=== PATIENT | male | born 1950 | race Caucasian/White ===

== ENCOUNTER 2018-02-01 11:23 | Inpatient (IN) | payer OTHER, MEDICARE ==
[2018-02-01] MEDS ORDERED: NS 1,000 ML IV ONE (14:21)
[2018-02-01 14:37] LABS: PLATELET COUNT 172 10^3/uL (150-400)
--- NOTE | 2018-02-01 15:11 | EDPHY ---
H & P <Ross Riley - Last Filed: 02/01/18 17:13> Smoking Status: Never smoked <Barbie Hammond - Last Filed: 02/02/18 09:39> Time Seen by Provider: 02/01/18 11:47 HPI/ROS: 5:20 p.m. we discussed the MRI results. The patient tells me that the tingling in his right foot is baseline neuropathy. tells me that on Tuesday night he had slurred speech and trouble ambulating compared to baseline but that has improved over the last 2 days. I suspect that he had a CVA at that time. I discussed the case with Dr. Ashley who will admit to the medical service. ( Ross Riley) HPI Urinary incontinence. 67-year-old male by private vehicle with his . This patient reports that since yesterday he has had urinary incontinence. He describes this as dribbling urine uncontrollably. He reports having some burning when this happens. He has not had any back pain. His tells me that he has had difficulty getting off the toilet over the last couple of days because he complains that his feet go numb. There is no history of trauma. He denies history of malignancy. His tells me that on Tuesday night he had some slurred speech and difficulty walking compared to his baseline. This improved over the next 2 days. Currently he denies loss of sensation or weakness in his lower extremities. He has a history of type 2 diabetes. He reports that he has had a urinary tract infection in the past. He has not had a fever. He denies back pain. ROS: Constitutional: No fever, no chills. As above. Eyes: No discharge. No changes in vision. ENT: No sore throat. No nasal congestion or rhinorrhea. Respiratory: No cough. No shortness of breath. Cardiac: No chest pain, no palpitations. Gastrointestinal: No abdominal pain, no vomiting, no diarrhea. Genitourinary: No hematuria. As above. Musculoskeletal: No back pain. No neck pain. No myalgias or arthralgias. Skin: No rashes. Neurological: No headache. No focal weakness or altered sensation. Past medical history: Type 2 diabetes. Social history: Nonsmoker. Here with his . Denies alcohol. Physical Exam: General Appearance: Alert, no distress. This patient is responding to questions appropriately when focused, he seems a bit slow to respond to questioning at time. This patient appears well-hydrated and well-nourished. Eyes: Pupils equal and round no pallor or injection. No lid edema, erythema or injection. Back: No midline thoracic lumbar, sacral tenderness on palpation. No soft tissue edema, erythema or rash noted on gross inspection of his back. He is neurologically intact in all myotomes in dermatomes of the bilateral lower extremities. No saddle anesthesia. Respiratory: There are no retractions, lungs are clear to auscultation with good air movement bilaterally. Cardiovascular: Regular rate and rhythm. No murmur. Gastrointestinal: Abdomen is soft and nontender, he has an easily reducible umbilical hernia, bowel sounds normal. No focal tenderness at McBurney's point. No Krueger sign. : Normal circumcised penis. Intermittently dribbles clear urine. No purulence or other evidence of infection. Neurological: Motor sensory function is grossly intact. Cranial nerves are normal. Gait is normal. As above. Skin: Warm and dry, no rashes. Musculoskeletal: Neck is supple and nontender. Extremities are symmetrical. All joints range without pain or impingement. Psychiatric: No agitation. No depression. Database: EKG: Imaging: MRI of the brain without contrast: MRI of the LS spine without contrast: Procedures: Emergency department course: Triage vital signs reviewed. He is moderately hypertensive. Triage vital signs otherwise normal. Urinalysis obtained and is unremarkable. No evidence of infection. This was sent for culture. Of concern is a central nervous system dysfunction regarding his urinary incontinence and possible stroke considering his episode of slurred speech and difficulty walking on Tuesday night. I discussed the case with staff radiologist Dr. Luis Antonio Salmeron. He recommends a noncontrast MRI of the brain and noncontrast MRI of the LS spine. 3:00 p.m., care turned over to Dr. Ross Riley. MRI and EKG pending. Differential Diagnosis: The differential diagnosis on this patient includes but is not limited to peripheral neuropathy, urinary tract infection, epidural compression syndrome, CVA. This represents a partial list of diagnoses considered. These considerations are based on history, physical exam, past history, reassessment and diagnostic testing. (Barbie Hammond) Constitutional: Initial Vital Signs Temperature (C) 36.8 C 02/01/18 11:35 Heart Rate 84 02/01/18 11:35 Respiratory Rate 16 02/01/18 11:35 Blood Pressure 152/81 H 02/01/18 11:35 O2 Sat (%) 94 02/01/18 11:35 O2 Delivery Mode Room Air Allergies/Adverse Reactions: niacin [From Niaspan Extended-Release] Allergy (Mild, Unverified 02/01/18 18:24) [place] Home Medications: Medication Instructions Recorded Allopurinol [Allopurinol 300 MG 300 mg PO DAILY 10/16/14 (RX)] Aspirin [Aspirin 81mg (OTC)] 81 mg PO DAILY 10/16/14 Diltiazem Cd [Cardizem ER 180 MG 180 mg PO DAILY 10/16/14 (RX)] Diltiazem HCl [Diltiazem ER] 240 mg PO DAILY 10/16/14 Herbals/Supplements -Info Only 1 ea PO DAILY 10/16/14 Loratadine [Claritin] 10 mg PO DAILY 10/16/14 Losartan/Hydrochlorothiazide 1 each PO DAILY 10/16/14 [Losartan-Hctz 100-25 Mg Tab] Multivitamins [Tab-A-Walker] 1 each PO DAILY 10/16/14 metFORMIN HCL [Glucophage] 500 mg PO BIDMEAL 10/16/14 Medical Decision Making - Diagnostics Imaging: Discussed imaging studies w/ physically impaired teacher Radiologist <Ross Riley - Last Filed: 02/01/18 17:13> <Barbie Hammond - Last Filed: 02/02/18 09:39> - Diagnostics EKG Interpretation: An EKG obtained and was read and documented in trace view. Please see trace view for full reading and report. Sinus rhythm, PVC, unusual T-wave anteriorly , will repeat A repeat EKG obtained and was read and documented in trace view. Please see trace view for full reading and report. Sinus rhythm with bigeminy, T-waves appear more normal (Ross Riley) Imaging Results: Imaging Impressions Brain MRI 02/01/18 14:32 Impression: 1. Acute right low parietal-insular ischemic infarction. 2. Chronic left posterior parietal-occipital infarction. 3. Query embolic phenomenon or vasculitis? 2. MRI Lumbar Spine (Without Contrast) History: Urinary incontinence. Technique: Sagittal and axial T1 and T2 second echo imaging with fat suppression. Sagittal STIR images. Findings: Lumbar alignment is anatomic except for mild retrolisthesis at L5- S1.. The lumbar canal is congenitally normal in size and widely patent. There is neuro nerve root clustering or nodularity to suggest arachnoiditis. The conus medullaris occurs at T12-L1 and appears normal. Posterior disk margins are normal at all levels except for a mild disk bulge at L5-S1 associated with a small eccentric to the left of midline disk protrusion and a right-sided posterior cyst facet joint synovial cyst. A synovial cyst causes a moderate dorsal lateral extradural indentation on the thecal sac but is not associated with severe central canal stenosis. There is a far lateral foraminal, annular tear at L4-L5. Bar bone marrow signal intensity is normal without evidence of metastatic disease or compression fracture. There is no evidence for an epidural hematoma or abscess. Impression: No source for incontinence identified. There is degenerative lumbar disease between L4 and S1. Results called to Dr. Riley at 5:02 PM Lumbar Spine MRI 02/01/18 14:32 Impression: 1. Acute right low parietal-insular ischemic infarction. 2. Chronic left posterior parietal-occipital infarction. 3. Query embolic phenomenon or vasculitis? 2. MRI Lumbar Spine (Without Contrast) History: Urinary incontinence. Technique: Sagittal and axial T1 and T2 second echo imaging with fat suppression. Sagittal STIR images. Findings: Lumbar alignment is anatomic except for mild retrolisthesis at L5- S1.. The lumbar canal is congenitally normal in size and widely patent. There is neuro nerve root clustering or nodularity to suggest arachnoiditis. The conus medullaris occurs at T12-L1 and appears normal. Posterior disk margins are normal at all levels except for a mild disk bulge at L5-S1 associated with a small eccentric to the left of midline disk protrusion and a right-sided posterior cyst facet joint synovial cyst. A synovial cyst causes a moderate dorsal lateral extradural indentation on the thecal sac but is not associated with severe central canal stenosis. There is a far lateral foraminal, annular tear at L4-L5. Bar bone marrow signal intensity is normal without evidence of metastatic disease or compression fracture. There is no evidence for an epidural hematoma or abscess. Impression: No source for incontinence identified. There is degenerative lumbar disease between L4 and S1. Results called to Dr. Riley at 5:02 PM - Data Points Laboratory Results: Laboratory Results 02/01/18 14:28 02/01/18 14:28 02/01/18 14:28 Hemoglobin A1c 6.3 % H % (4.0-6.0) Estim Average Glucose 134 mg/dL H mg/dL (68-126) Medications Given: Allopurinol (Allopurinol) 300 mg PO DAILY [facility] Stop: 08/01/18 08:59 Last Admin: 02/02/18 08:17 Dose: 300 mg Aspirin (Aspirin) 81 mg PO DAILY [facility] Stop: 08/01/18 08:59 Last Admin: 02/02/18 08:17 Dose: 81 mg Cetirizine HCl (Zyrtec) 10 mg PO DAILY [facility] Stop: 08/01/18 08:59 Last Admin: 02/02/18 08:17 Dose: 10 mg Diltiazem HCl (Cardizem Er Q24hr) 180 mg PO DAILY [facility] Stop: 08/01/18 08:59 Last Admin: 02/02/18 08:15 Dose: 180 mg Diltiazem HCl (Dilacor Xr) 240 mg PO DAILY [facility] Stop: 08/01/18 08:59 Last Admin: 02/02/18 08:16 Dose: 240 mg Enoxaparin Sodium (Lovenox) 40 mg SC DAILY [facility] Stop: 08/01/18 08:59 Last Admin: 02/02/18 08:18 Dose: 40 mg HCTZ/Losartan Potassium (Hyzaar 50/12.5) 2 tab PO DAILY [facility] Stop: 08/01/18 08:59 Last Admin: 02/02/18 08:16 Dose: 2 tab Sodium Chloride (Ns) 1,000 mls @ 75 mls/hr IV CONT [facility] Stop: 07/31/18 20:59 Last Admin: 02/01/18 22:06 Dose: 1,000 mls Insulin Human Lispro (Humalog Lispro) 0 unit SC TIDMEAL [facility] PRN Reason: Protocol Stop: 08/01/18 07:59 Last Admin: 02/02/18 08:17 Dose: 2 units Multivitamins (Tab-A-Walker) 1 each PO DAILY [facility] Stop: 08/01/18 08:59 Last Admin: 02/02/18 08:19 Dose: 1 each Discontinued Medications Sodium Chloride (Ns) 1,000 mls @ 0 mls/hr IV ONCE ONE; Wide Open PRN Reason: Protocol Stop: 02/01/18 14:22 Last Admin: 02/01/18 14:39 Dose: 1,000 mls Departure <Ross Riley - Last Filed: 02/01/18 17:13> <Barbie Hammond - Last Filed: 02/02/18 09:39> - Departure Disposition: [facility] Inpatient Acute Clinical Impression: Urinary incontinence Condition: Fair
--- NOTE | 2018-02-01 16:09 | CPEKG ---
Test Reason : OPEN Blood Pressure : / mmHG Vent. Rate : 070 BPM Atrial Rate : 070 BPM P-R Int : 126 ms QRS Dur : 087 ms QT Int : 425 ms P-R-T Axes : 021 011 -74 degrees QTc Int : 459 ms Sinus rhythm Ventricular bigeminy Probable left atrial enlargement Confirmed by Ross Riley ([id number]) on 02/01/2018 4:09:16 PM Referred By: Confirmed By:Ross Riley
--- NOTE | 2018-02-01 18:08 | CPEKG ---
Test Reason : OPEN Blood Pressure : / mmHG Vent. Rate : 091 BPM Atrial Rate : 038 BPM P-R Int : 167 ms QRS Dur : 087 ms QT Int : 432 ms P-R-T Axes : 031 010 226 degrees QTc Int : 532 ms Sinus rhythm Ventricular bigeminy Left atrial enlargement Confirmed by Ross Riley ([id number]) on 02/01/2018 6:08:07 PM Referred By: Confirmed By:Ross Riley
[2018-02-01] MEDS ORDERED: ACETAMINOPHEN 325 MG TAB PO PRN (20:51)
[2018-02-01] MEDS ORDERED: HYDROmorphONE/DILAUDID 1 MG/ML INJ IVP PRN (20:51)
[2018-02-01] MEDS ORDERED: ONDANSETRON DISINTEGRATING 4 MG TAB PO PRN (20:51)
[2018-02-01] MEDS ORDERED: PROMETHAZINE HCL 25 MG/ML INJ IVP PRN (20:51)
[2018-02-01] MEDS ORDERED: ONDANSETRON 4 MG/2 ML VIAL IVP PRN (20:51)
[2018-02-01] MEDS ORDERED: NS 1,000 ML IV SCH (21:00)
[2018-02-01] MEDS ORDERED: D50W 25 GM/50 ML VIAL IVP PRN (22:20)
--- NOTE | 2018-02-01 22:49 | GHP ---
[f rep st] HISTORY AND PHYSICAL DATE OF ADMISSION: 02/01/2018 CHIEF COMPLAINT: Urinary incontinence. HISTORY: This is a 67-year-old man with a history of type 2 diabetes, hypertension, hyperparathyroid ism who presents initially with his with complaints of urinary incontinence that began yesterday . Apparently, he described this as dribbling urine uncontrollably. Apparently also his noted t hat he was having some difficulty walking with perhaps numbness in his feet. He notes to me that he also is having some difficulty with slurred speech since yesterday. This history is significantly li mited by patient's difficulty with providing a history. His family is not present at the time of my evaluation, and he is quite distracted by his cellphone and having a hard time answering questions wi th anything more than a yes or no answer. Therefore, a lot of this history is obtained per chart rev iew. He does to me deny any chest pain, weakness or numbness, fevers or chills, and shortness of christine ath. PAST MEDICAL HISTORY: Includes: 1. Type 2 diabetes. 2. Hypertension. 3. Hypothyroid. 4. GERD. 5. Low vitamin D. 6. Hyperparathyroidism. PAST SURGICAL HISTORY: Notable for parathyroidectomy. FAMILY HISTORY: Father with multiple CVAs according to the patient. He states he also had a blood c lotting disorder. SOCIAL HISTORY: Patient denies tobacco or alcohol or drug use. 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 REVIEW OF SYSTEMS: 10-point review of systems obtained, negative except as per HPI. HOME MEDICATIONS: 1. Metformin. 2. Multivitamin. 3. Losartan hydrochlorothiazide. 4. Loratadine. 5. Diltiazem. 6. Aspirin. 7. Allopurinol. ALLERGIES: Include niacin. PHYSICAL EXAMINATION: VITAL SIGNS: BP 148/63, heart rate 73, respiratory rate 18, O2 sats 93% on ro om air, temperature is 36.7. GENERAL APPEARANCE: This is a slightly disheveled man. He is awake an d alert. He is in no acute distress. EYES: Anicteric. Pupils equal, round, and reactive. HENT: Oropharynx is clear, moist mucous membranes. CARDIOVASCULAR: Regular, slightly bradycardic. No MRG . PULMONARY: CTA bilaterally. Normal work of breathing. ABDOMEN: Soft, nontender, nondistended. EXTREMITIES: No clubbing, cyanosis, or edema. SKIN: Warm, dry, well perfused. NEURO/PSYCH: Patient does seem to have a bit of dysarthria and difficulty following the conversation , which seems to be unlikely to be his baseline. His gait was appreciated to be normal. Strength an d sensation appear to be normal, though he is having difficulty following commands. CLINICAL DATA: Labs reviewed and notable for white blood cell count of 9.9, hematocrit of 51.6, plat elets of 172. Chemistry unremarkable. Urinalysis is normal. Head CT is limited study but unremarka ble. EKG personally reviewed and interpreted shows sinus rhythm with ventricular bigeminy, otherwise unrem arkable. Brain MRI: This was personally reviewed. There is no radiology read currently. However, there does appear to be a large right parietal infarct. ASSESSMENT AND PLAN: This is a 67-year-old man presenting with some subacute neurologic complaints i ncluding urinary incontinence, found to have likely subacute cerebrovascular accident. 1. Subacute cerebrovascular accident. It seems that this likely happened in the last several days b ut somewhat unclear given the history. Radiology read on MRI is still pending. Neurology has been c onsulted. We will monitor on telemetry, obtain an echocardiogram. Head and neck CTA likely will be required in the morning, but we will defer this to Neurology at this point given that imaging read is still pending. Patient does note that he has a family history of recurrent strokes in his father wi th some sort of blood clotting disorder, so this too may need to be further evaluated, and again, we will defer to Neurology. 2. Hypertension. We will continue patient's outpatient medications. His blood pressure is currentl y reasonably well controlled. 3. Type 2 diabetes. We will hold metformin as patient likely will require further imaging. We will monitor with sliding scale and check a hemoglobin A1c. 4. Hyperlipidemia. We will obtain lipid panel for further risk stratification. Patient is not curr ently on a statin at home. 5. Acute encephalopathy. This is likely related to patient's subacute cerebrovascular accident, tho ugh his baseline is unclear. We will need to obtain further information from family when they are av ailable. Uncertain if he has some level of baseline dementia, but when he speaks about his business, it sounds as if he is quite clear about that, but with other matters he does have significant diffic ulty with memory and with answering questions appropriately. We will further evaluate again as famil y is available. 6. Inpatient status: Suspect patient will need greater than 48-hour stay for evaluation and managem ent of above. 7. Patient is new to my care. Old records reviewed and summarized as per history of present illness and past medical history. Care plan reviewed with emergency room physician including plans for admi ssion. /[id number]/MODL
[2018-02-02] MEDS: DILTIAZEM CD 180 MG CAP PO SCH (08:15)
[2018-02-02] MEDS: DILTIAZEM XR 240 MG CAP PO SCH (08:16)
[2018-02-02] MEDS: LOSARTAN/HCTZ 50/12.5 1 TAB PO SCH (08:16)
[2018-02-02] MEDS: CETIRIZINE 10 MG TAB PO SCH (08:17)
[2018-02-02] MEDS: ALLOPURINOL 300 MG TAB PO SCH (08:17)
[2018-02-02] MEDS: INSULIN LISPRO 100 UNIT/ML SC SCH ×3 (08:17→18:52)
[2018-02-02] MEDS: ASPIRIN 81 MG CHEWABLE TAB PO SCH (08:17)
[2018-02-02] MEDS: ENOXAPARIN 40 MG/0.4 ML SYR SC SCH (08:18)
[2018-02-02] MEDS: MULTIVITAMINS 1 EACH TAB PO SCH (08:19)
[2018-02-02] MEDS ORDERED: ASPIRIN 81 MG CHEWABLE TAB PO SCH (09:00)
--- NOTE | 2018-02-02 09:24 | GCON ---
[f rep st] CONSULTATION NEUROLOGY CONSULTATION REFERRING PHYSICIAN: Elsa Hill MD HISTORY: The patient is a 67-year-old gentleman who I am asked to see in neurologic consultation reg arding stroke. The patient presented to the hospital to the recommendation of his since he was really not aware of anything specific. Apparently, grandkids noticed that he was not quite himself a nd he normally takes them to school and there was some report of some slurring of speech. He was hav ing some incontinence 2 days ago and just some dribbling is what he described. He was complaining of some numbness in his feet when he was sitting on the toilet. He was not noticing any specific weakn ess. During his evaluation, he had MRI of the brain and lumbar spine, and evidence of an acute strok e was identified in the right posterior frontal region with cortical base in the distribution of the middle cerebral artery, and also old stroke in the left parieto-occipital region, for which the patie nt says he had no idea. In fact, he really does not have complaints of any focal numbness or weaknes s. He can tell his speech might be slightly off, but that is really only because his mentioned it to him. He has subsequently been admitted for evaluation and has been stable overnight. Dr. Hill's hist ory and physical was reviewed. He has been started on aspirin therapy. PAST MEDICAL HISTORY: He has a history of type 2 diabetes, hypertension, hypothyroidism, reflux, low vitamin D, and hyperparathyroidism. FAMILY HISTORY: There is a family history of multiple strokes in his father and might have had some type of clotting disorder. SOCIAL HISTORY: No smoking or alcohol. 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 MEDICATIONS: Metformin, losartan, loratadine, diltiazem, aspirin, allopurinol. ALLERGIES: He has allergy to niacin. REVIEW OF SYSTEMS: Unremarkable, except for that noted above. PHYSICAL EXAM: VITAL SIGNS: Blood pressure is 124/74, pulse of 76, respirations 23, temperature 36. 5. GENERAL: He is mildly overweight, in no acute distress. EYES: Clear. NECK: Supple with no br uits or masses. CARDIAC: Regular rate and rhythm. No murmur. NEURO: He is awake and alert, but h as unsustained attention and rather prolonged latency to answer questions. I do not know his true ba seline of communication skills, but it seems impaired. He even lacks some awareness of the problems he is having, suggesting a little bit of neglect on the left side as well. This was variable. I cou ld not detect any visual field loss. Pupils 3 mm and reactive. Extraocular movements intact. At re st, there looks to be a mild left lower facial droop and I think his speech is a little bit dysarthri c. Palate elevates symmetrically. Tongue protrudes midline. Hearing is preserved. Motor exam: Ve ry mild drift in the left upper extremity with a little bit of weakness relative to the right. Lower extremity strength seems symmetric. Sensation is preserved. There was not definite neglect to simu ltaneous stimulation after initially I detected that it was not reproducible. Reflexes 1+. DIAGNOSTIC STUDIES: As outlined above. The patient has an NIH stroke scale of 4. IMPRESSION: Total unit time of 70 minutes. The patient has evidence of an acute ischemic infarction in the right middle cerebral artery territory with a significant infarct at about 4 x 4 cm, producin g minimal clinical deficits other than the dysarthria, subtle facial droop and mild left hemiparesis and neglect. The patient has also had a stroke in the left posterior parietooccipital region in the past, which would suggest potential embolic source. We need to obtain CT angiogram of the head and n mariann, and cardiac study with bubble study on echocardiogram, and continue monitoring. If all the work up is negative, then he should have at least a 30-day Holter monitor and consider prolonged monitorin g to look for occult atrial fibrillation. He should be started on statin therapy and continue the as pirin for now. With the father having history of stroke and reportedly possible clotting disorder, kaden jackson consideration will also be given to a hypercoagulable workup. He will need physical, occupationa l, and speech therapy consultations today, and depending on the results of our initial workup, fareed ram discharge at the end of the day today or perhaps tomorrow. This was discussed with the patient, but how much detail he is going to retain is to be determined. /[id number]/MODL
--- NOTE | 2018-02-02 10:42 | HOSPPROG ---
Hospitalist Progress Note Assessment/Plan: #Acute right parietal infarct: Also with chronic L parietal infarct on MRI concerning for thromboembolic source. Has some mild dysarthria, L facial droop, LUE weakness and inattention on exam. Did not get tPA. - Neuro following - ASA, start atorvastatin - TTE w/bubble - CTA head/neck - PT/OT/AERONAUTICAL TEST ENGINEER - Hypercoagulable work up pending - Telemetry - May need 30 day cardiac event monitor on dc if above work up unrevealing for source - Risk factor modification per below #Diabetes: A1c 6.3% - Hold metformin with contrast, on SSI #HTN: BP controlled - Continue home losartan/hctz and dilt #Ventricular bigeminy: Noted on admit ECG and tele - On CCB and also getting TTE - 30 day event monitor will be helpful in quantifying burden to determine need for additional therapy #Systolic murmur: Harsh, patient reports being told he's had this before but never been evaluated. Euvolemic - TTE #Hyperparathyroidism: s/p parathyroidectomy. Ca++ wnl. VTE ppx: LMWH Diet: passed AERONAUTICAL TEST ENGINEER miguelina ok for regular Code: full Dispo: Remain inpatient for evaluation as noted above. AERONAUTICAL TEST ENGINEER currently recommending inpatient rehab however will await additional therapy service recommendations and discuss with family. Subjective: Denies pain, nausea, shortness of breath. Perseverating on paper that AERONAUTICAL TEST ENGINEER had given him. Objective: Vital Signs Temp Pulse Resp BP Pulse Ox 36.5 C 76 23 H 124/74 H 94 02/02/18 07:36 02/02/18 08:16 02/02/18 07:36 02/02/18 08:16 02/02/18 07:36 02/01/18 02/02/18 02/03/18 05:59 05:59 05:59 Intake Total 2000 Output Total 500 Balance 1500 - Physical Exam Constitutional: no apparent distress, appears nourished, not in pain Eyes: PERRL, anicteric sclera, EOMI Cardiovascular: regular rate and rhythym, systolic murmur (harsh 3/6 systolic murmur heard across precordium without radiation, discernible S2), other ( frequent ectopy), No JVD, No edema Respiratory: no respiratory distress, no rales or rhonchi, clear to auscultation Gastrointestinal: normoactive bowel sounds, soft, non-tender abdomen, no palpable masses Skin: no rashes or abrasions, no fluctuance, no induration Musculoskeletal: full muscle strength, no muscle tenderness, normal joint ROM Neurologic: other (mild dysarthria, subtle left facial droop, subtle LUE weakness, limited attention) Psychiatric: not encephalopathic ICD10 Worksheet Patient Problems: Problems Problem Status Onset Stroke Acute Urinary incontinence Acute
[2018-02-02] MEDS ORDERED: IOPAMIDOL (ISOVUE 370) 100 ML BTL IV ONE (11:03)
--- NOTE | 2018-02-02 12:14 | ECHO ---
[email or web address] [address] Main: [phone] Fax: Transthoracic Echocardiogram Name: STORMY SHEPHERD MR#: [id number] Study Date: 02/02/2018 Study Time: 10:51 AM Date of : 1950 Age: 67 year(s) Height: 182.9 cm (72 in.) Weight: 88.45 kg (195 lb.) BSA: 2.11 m2 Gender: Male Examination: Echo with Agitated Saline Indication: ischemic stoke Image Quality: Technically Difficult Contrast: I.V. dose of agitated saline Requested by: Elsa Hill BP: 124 mmHg/77 mmHg Heart Rate: Rhythm: Indication: ischemic stoke Procedure Staff Mechanical Integrity Specialist: Shey Stark [facility] Reading Physician: Teofilo Angel MD Requesting Provider: Conclusions: Normal size left ventricle. Moderate concentric LV hypertrophy. EF is 71 %. No regional wall motion abnormality. An agitated saline study was performed and was negative for intracardiac shunting. Trivial mitral valve regurgitation. Aortic valve is not well visualized. Cannot rule out bicuspid aortic valve. Severe aortic valve calcification is present. Severe calcific aortic valve stenosis. Mean aortic valve gradient 75. No pericardial effusion. No prior study for comparison. Measurements: Chambers Valvular Assessment AV/MV Valvular Assessment TV/PV Normal Normal Normal Name Value Range Name Value Range Name Value Range Ao Dahiana (MM): 3.5 cm (2.2 cm-3.7 AV meanP mmHg ( - ) PV Vmax: 1.26 m/s (0.6 m/s-0.9 cm) ANGÉLICA (VTI): 0.7 cm ( - ) m/s) IVSd (2D): 1.4 cm (0.6 cm-1.1 AR (PHT): 565 ms ( - ) PV PGmax: 6 mmHg ( - ) cm) MV E Vmax: 0.71 m/s ( - ) LVDd (2D): 4.6 cm (4.2 cm-5.9 MV A Vmax: 1.09 m/s ( - ) cm) MV E/A: 0.65 ( - ) LVDs (2D): 3.1 cm (2.1 cm-4 cm) LVPWd (2D): 1.2 cm (0.6 cm-1 cm) LVOTd 2.1 cm 2.1 cm mm LVEF (BP): 71 % (>=55 %) Patient: STORMY SHEPHERD Study Date: 02/02/2018 Page 1 of 2 10:51 AM RVDd(2D): 3.7 cm (1.9 cm-3.8 cmmm) Continued Measurements: Chambers Valvular Assessment AV/MV Valvular Assessment TV/PV Name Value Name Value Name Value LADs: 3.7 cm MV DecTime: 222 m/s CVP (est.): 5 mmHg LADs Lon.8 cm MV E' Septal: 0.04 m/s LA Area: 22.8 cm2 MV E/E' Septal: 16.80 LA Volume: 60 ml MV E/E' Lateral: 16.80 LA Volume Index: 28.4 ml/m2 RA Area: 19.3 cm2 Additional Vessels Name Value Ao Ascendin.2 cm Findings: Left Ventricle: Normal size left ventricle. Moderate concentric LV hypertrophy. Normal global systolic LV function. EF is 71 %. No regional wall motion abnormality. Right Ventricle: Normal size right ventricle. Normal RV function. Left Atrium: The left atrium is normal in size. An agitated saline study was performed and was negative for intracardiac shunting. Right Atrium: The right atrium is normal in size. Mitral Valve: The mitral valve is normal in appearance. Trivial mitral valve regurgitation. No mitral stenosis is present. Aortic Valve: Aortic valve is not well visualized. Cannot rule out bicuspid aortic valve. Severe aortic valve calcification is present. Severe calcific aortic valve stenosis. Mean aortic valve gradient 75. NDSI =.21. Tricuspid Valve: The tricuspid valve appears normal. There is no tricuspid valve regurgitation. Pulmonic Valve: Pulmonary valve not well visualized. Aorta: Normal size aortic root measuring 3.5 cm. Normal size ascending aorta measuring 3.2 cm. IVC: The IVC is normal sized. Pericardium: No pericardial effusion. (No Signature Object) Patient: STORMY SHEPHERD Study Date: 02/02/2018 Page 2 of 2 10:51 AM [id number]
--- NOTE | 2018-02-02 13:51 | PDMN ---
Medical Necessity Medical necessity: Pt meets IP criteria per & TAVARES M-83; est los >2 mn for eval/tx of acute ischemic infarction w/acute encephalopathy; requiring further workup/monitoring, Neuro consult, IVFs, med management & therapies; hx diabetes , HTN & hyperthyroidism; per H&P & order 02/01/18
[2018-02-02] MEDS: ATORVASTATIN CALCIUM 40 MG TAB PO SCH (15:00)
--- NOTE | 2018-02-02 15:54 | PDCARCONS ---
Cardiology Consult Reason for Consult: CVA and notable murmur Chief Complaint: Urinary incontinence with slurred speech Requesting Physician: Hospitalist Team History of Present Illness: Patient is a 67 y/o male with history of DM, HTN, hypothyroidism, GERD, and hyperparathyroidism, with long standing history of "murmur" per both patient and , who presented to [facility] ER with complaints of urinary incontinence as well as ambulation difficulty and slurring of speech. Symptoms were initially noted two days ago, and admission was yesterday. No cardiovascular complaints of chest pains or pressure. No PND or orthopnea. No dizziness or lightheadedness. No symptoms similar to that which led to the admission to the ER in the past. Compliance with medical therapy has been good, but follow up with PCP for annual visit has been uneventful (per patient and ). No regular or routine exercise. No abnormal weight gain or loss has been noted. Admission note from 02-01-18 was reviewed today. In the ER, an MRI was performed which led to diagnosis of right CVA and consultation with neurology. Patient states that he has "...known about the murmur for some time..." but has not had a work up on this sign. Family history of father "...with hundreds of strokes..." in the past, and work up led to finding of a "blood problem". Remainder of the 12 point review of systems was unremarkable History Information - Allergies/Home Medication List Allergies/Adverse Reactions: niacin [From Niaspan Extended-Release] Allergy (Mild, Unverified 02/01/18 18:24) Flushing Home Medications: Allopurinol [Allopurinol 300 MG (RX)] 300 mg PO DAILY 10/16/14 [Last Taken 02/01] Aspirin [Aspirin 81mg (OTC)] 81 mg PO DAILY 10/16/14 [Last Taken 02/01/18 09:30] Diltiazem Cd [Cardizem ER 180 MG (RX)] 180 mg PO DAILY 10/16/14 [Last Taken ] Diltiazem HCl [Diltiazem ER] 240 mg PO DAILY 10/16/14 [Last Taken 02/01/18] Herbals/Supplements -Info Only 1 ea PO DAILY 10/16/14 [Last Taken 02/01/18] Loratadine [Claritin] 10 mg PO DAILY 10/16/14 [Last Taken 01/31/18] Losartan/Hydrochlorothiazide [Losartan-Hctz 100-25 Mg Tab] 1 each PO DAILY 10/16 [Last Taken 02/01/18] Multivitamins [Tab-A-Walker] 1 each PO DAILY 10/16/14 [Last Taken 02/01/18] metFORMIN HCL [Glucophage] 500 mg PO BIDMEAL 10/16/14 [Last Taken 02/01/18 09:00 ] I have personally reviewed and updated: family history, medical history, social history, surgical history Past Medical History: - Past Medical History CVA (new diagnosis), diabetes type 2, hypertension, hyperlipidemia - Surgical History Additional surgical history: parathyroidectomy - Family History Positive for: stroke - Social History Smoking Status: Never smoked Alcohol Use: None Drug Use: None Cardiac History - Cardiac History Cardiac Risk Factors: hypertension (>140/90), diabetes mellitus, age > 65, male Timing/Duration: Hours Severity: severe Severity Scale: 8 Activities at Onset: activity Associated Symptoms: weakness, other (aphasia) MARYANN Risk Evaluation age greater or equal to 65: yes greater or equal to 3 CAD risk factors: yes known CAD(stenosis greater or eqaul to 50%): no ASA use in past 7 days: no severe angina(greater or equal to 2 episodes in 24hrs): no EKG ST changes greater or equal to 0.5mm: no positive cardiac marker: no Total Score: 2 MARYANN Score: 8.3% risk Physical Exam Physical Exam: Temp Pulse Resp BP Pulse Ox 36.3 C 75 23 H 119/53 L 91 L 02/02/18 12:00 02/02/18 12:00 02/02/18 12:00 02/02/18 12:00 02/02/18 12:00 O2 (L/minute) 2 Constitutional: no apparent distress, appears nourished, not in pain, obese Eyes: PERRL, EOMI Ears, Nose, Mouth, Throat: moist mucous membranes, hearing normal Cardiovascular: regular rate and rhythym, systolic murmur (IV/ FRANCINE with radiation into the carotids), pulses symmetric bilaterally (some delay in auscultation to radial impulse), No JVD, No edema Peripheral Pulses: 2+: dorsalis-pedis (R), dorsalis-pedis (L) Respiratory: no respiratory distress, no rales or rhonchi, clear to auscultation Gastrointestinal: normoactive bowel sounds Skin: warm, normal color, No rash Musculoskeletal: full muscle strength, no muscle tenderness, normal joint ROM Neurologic: AAOx3, sensation intact bilaterally, CN II-XII Intact Psychiatric: interacting appropriately, not anxious, not encephalopathic Lab and Imaging 02/01/18 14:28 02/01/18 14:28 WBC 9.95 10^3/uL (3.80-9.50) H 02/01/18 14:28 RBC 6.14 10^6/uL (4.40-6.38) 02/01/18 14:28 Hgb 17.8 g/dL (13.7-17.5) H 02/01/18 14:28 Hct 51.6 % (40.0-51.0) H 02/01/18 14:28 MCV 84.0 fL (81.5-99.8) 02/01/18 14: MCH 29.0 pg (27.9-34.1) 02/01/18 14:28 MCHC 34.5 g/dL (32.4-36.7) 02/01/18 14:28 RDW 13.6 % (11.5-15.2) 02/01/18 14:28 Plt Count 172 10^3/uL (150-400) 02/01/18 14:28 MPV 10.8 fL (8.7-11.7) 02/01/18 14:28 Neut % (Auto) 70.5 % (39.3-74.2) 02/01/18 14:28 Lymph % (Auto) 17.8 % (15.0-45.0) 02/01/18 14:28 [place] % (Auto) 9.5 % (4.5-13.0) 02/01/18 14:28 Eos % (Auto) 1.2 % (0.6-7.6) 02/01/18 14:28 Baso % (Auto) 0.6 % (0.3-1.7) 02/01/18 14:28 Nucleat RBC Rel Count 0.0 % (0.0-0.2) 02/01/18 14:28 Absolute Neuts (auto) 7.01 10^3/uL (1.70-6.50) H 02/01/18 14:28 Absolute Lymphs (auto) 1.77 10^3/uL (1.00-3.00) 02/01/18 14:28 Absolute Monos (auto) 0.95 10^3/uL (0.30-0.80) H 02/01/18 14:28 Absolute Eos (auto) 0.12 10^3/uL (0.03-0.40) 02/01/18 14:28 Absolute Basos (auto) 0.06 10^3/uL (0.02-0.10) 02/01/18 14:28 Absolute Nucleated RBC 0.00 10^3/uL (0-0.01) 02/01/18 14:28 Immature Gran % 0.4 % (0.0-1.1) 02/01/18 14:28 Immature Gran # 0.04 10^3/uL (0.00-0.10) 02/01/18 14:28 Sodium 139 mEq/L (135-145) 02/01/18 14:28 Potassium 3.8 mEq/L (3.3-5.0) 02/01/18 14:28 Chloride 104 mEq/L (97-110) 02/01/18 14:28 Carbon Dioxide 23 mEq/l (22-31) 02/01/18 14:28 Anion Gap 12 mEq/L (8-16) 02/01/18 14:28 BUN 19 mg/dL (7-23) 02/01/18 14:28 Creatinine 1.1 mg/dL (0.7-1.3) 02/01/18 14:28 Estimated GFR > 60 02/01/18 14:28 Glucose 104 mg/dL (70-100) H 02/01/18 14:28 POC Glucose 171 mg/dL (70-100) H 02/02/18 13:37 Hemoglobin A1c 6.3 % (4.0-6.0) H 02/01/18 14:28 Estim Average Glucose 134 mg/dL (68-126) H 02/01/18 14:28 Calcium 10.0 mg/dL (8.5-10.4) 02/01/18 14:28 Troponin I 0.116 ng/mL (0.000-0.034) H 02/02/18 09:24 C-Reactive Protein 10.4 mg/L (<10.0) H 02/02/18 09:24 Triglycerides 230 mg/dL (40-150) H 02/02/18 05:45 Cholesterol 152 mg/dL (140-220) 02/02/18 05:45 Cholesterol Risk Factr 2.0 (0.2-1.0) H 02/02/18 05:45 LDL Cholesterol, Calc 88 mg/dL (80-100) 02/02/18 05:45 LDL Risk Factor 1.4 (0.2-1.0) H 02/02/18 05:45 VLDL Cholesterol 46 mg/dL (8-25) H 02/02/18 05:45 Non-HDL Cholesterol 134 mg/dL (90-129) H 02/02/18 05:45 HDL Cholesterol 18 mg/dL (40-65) L 02/02/18 05:45 LDL/HDL Ratio 4.89 RATIO (1.00-3.64) H 02/02/18 05:45 Cholesterol/HDL Ratio 8.44 RATIO (1.00-4.97) H 02/02/18 05:45 Urine Color YELLOW 02/01/18 13:25 Urine Appearance HAZY 02/01/18 13:25 Urine pH 5.0 (5.0-7.5) 02/01/18 13:25 Ur Specific [place] 1.015 (1.002-1.030) 02/01/18 13:25 Urine Protein NEGATIVE (NEGATIVE) 02/01/18 13:25 Urine Ketones NEGATIVE (NEGATIVE) 02/01/18 13:25 Urine Blood NEGATIVE (NEGATIVE) 02/01/18 13:25 Urine Nitrate NEGATIVE (NEGATIVE) 02/01/18 13:25 Urine Bilirubin NEGATIVE (NEGATIVE) 02/01/18 13:25 Urine Urobilinogen NEGATIVE EU (0.2-1.0) 02/01/18 13:25 Ur Leukocyte Esterase NEGATIVE (NEGATIVE) 02/01/18 13:25 Urine RBC 1-3 /hpf (0-3) 02/01/18 13:25 Urine WBC 1-3 /hpf (0-3) 02/01/18 13:25 Ur Epithelial Cells NONE SEEN /lpf (NONE-1+) 02/01/18 13:25 Urine Mucus TRACE /lpf (NONE-1+) 02/01/18 13:25 Urine Glucose NEGATIVE (NEGATIVE) 02/01/18 13:25 Visualized and Interpreted EKG results: Yes EKG Interpretation: Positive for: normal sinsus rhythm EKG additional interpertation: frequent PVCs Telemetry: sinus rhythm with frequent PVCs Echocardiogram: normal LVEF was noted. Severe aortic stenosis (mean gradient was >70 mm Hg with peak velocities that were up at 6 m/s) A/P Assessment: Patient is a 67 y/o male with history of DM, HTN, but no HLP or history of CAD with parathyroidectomy and hypothyroidism, who presented to [facility] with neurologic deficits (gait instability, slurred speech, and numbness). Work up in the ER with right sided CVA noted. Murmur was noted on physical exam (this has been a sign noted in the past), with echocardiography revealing a severely stenotic aortic valve (mean gradients of >70 mm Hg with velocities that achieved greater than 6 m/s). No active cardiovascular complaints. No signs or symptoms have been noted prior to the neurologic deficits that were noted about 1-2 days prior. Plan: Given the severity of the aortic valve pathology, and the newly noted neurologic events (uncertain on the etiology of these), would have CT surgery consult with the patient - today if possible. Patient will need further CV work up (left heat catheterization, carotid ultrasound, and given the family history of "clotting history and CVAs", would perform a heme work up with notable clotting factor deficiencies (factor IV leiden, ATP III, Protein C/S), and consider full Heme/Onc consultation with voiced history of father (CVAs). Further recommendations after CT surgery consultation (currently ongoing).
--- NOTE | 2018-02-02 16:38 | CPEKG ---
Test Reason : OPEN Blood Pressure : / mmHG Vent. Rate : 096 BPM Atrial Rate : 037 BPM P-R Int : 159 ms QRS Dur : 088 ms QT Int : 359 ms P-R-T Axes : 023 005 -87 degrees QTc Int : 454 ms Sinus rhythm Ventricular bigeminy Probable left atrial enlargement Nonspecific T abnormalities, lateral leads Confirmed by Jose Luis Milligan ([id number]) on 02/02/2018 4:38:21 PM Referred By: Confirmed By:Jose Luis Milligan
--- NOTE | 2018-02-02 16:48 | ASMTCMCOM ---
CM Note CM Note Notes: Pt with numerous comorbidites in for CVA. Resides with spouse. OT/PT/[employer] rec inpatient rehab, consult order is in. Spoke with pt and Elma, discussed the recommendation and provided information. Elma communicates they have been pretty overwhelmed with the events of the day and will take time to process and discuss with family d/c recommendation. CM to follow. Date Signed: 02/02/2018 04:48 PM Electronically Signed By:SASCHA Hough
--- NOTE | 2018-02-03 08:25 | NEUROPROG ---
Assessment: Total unit time of 15 minutes: Pt with stroke and stable deficits. I discussed with patient today and Dr. Guzman yesterday. We feel it best to wait about 6 weeks for recovery time prior to considering valve replacement. OK to discharge from my perspective. Subjective: Patient is reporting no new complaints today. Objective: Vital Signs Temp Pulse Resp BP Pulse Ox 36.4 C 86 16 140/85 H 98 02/03/18 04:00 02/03/18 04:00 02/03/18 04:00 02/03/18 04:00 02/03/18 04:00 Laboratory Results 02/03/18 04:41 02/03/18 04:41 02/02/18 02/03/18 02/04/18 05:59 05:59 05:59 Intake Total 2000 Output Total 500 1500 Balance 1500 -1500 Sleepy but able to communicate with mild dysarthria and left facial droop. Echo shows severe CTA: no large vessel stenoses Allergies/Adverse Reactions: niacin [From Niaspan Extended-Release] Allergy (Mild, Unverified 02/01/18 18:24) Flushing
[2018-02-03] MEDS: INSULIN LISPRO 100 UNIT/ML SC SCH ×2 (09:09→13:15)
[2018-02-03] MEDS ORDERED: BACITRACIN IRRIGATION/NS 50,000 UNITS/1,000 ML BTL IRR ONE (10:06)
[2018-02-03] MEDS ORDERED: NS 1,000 ML IV ONE (10:06)
[2018-02-03] MEDS: MULTIVITAMINS 1 EACH TAB PO SCH (10:36)
[2018-02-03] MEDS: ATORVASTATIN CALCIUM 40 MG TAB PO SCH (10:36)
[2018-02-03] MEDS: ALLOPURINOL 300 MG TAB PO SCH (10:36)
[2018-02-03] MEDS: LOSARTAN/HCTZ 50/12.5 1 TAB PO SCH (10:38)
[2018-02-03] MEDS: CETIRIZINE 10 MG TAB PO SCH (10:39)
[2018-02-03] MEDS: DILTIAZEM CD 180 MG CAP PO SCH (10:39)
[2018-02-03] MEDS: DILTIAZEM XR 240 MG CAP PO SCH (10:41)
[2018-02-03] MEDS ORDERED: LIDOCAINE 1% 300 MG/30 ML SDV SC ONE (10:43)
--- NOTE | 2018-02-03 10:44 | PDCARPN ---
Cardiology Progress Note Chief Complaint: No cardiovascular complaints today Assessment/Plan: Assessment: 02-03-[address] surgery visited with the patient yesterday, and opted to delay surgical intervention to the Aortic valve given the acuity and severity of the CVA. Patient without cardiovascular complaints in the office today. No chest pains or pressure. No palpitations. No dizziness. was present with the patient today. Neurology note appreciated. 02-02-18 Patient is a 67 y/o male with history of DM, HTN, hypothyroidism, GERD, and hyperparathyroidism, with long standing history of "murmur" per both patient and , who presented to [facility] ER with complaints of urinary incontinence as well as ambulation difficulty and slurring of speech. Symptoms were initially noted two days ago, and admission was yesterday. No cardiovascular complaints of chest pains or pressure. No PND or orthopnea. No dizziness or lightheadedness. No symptoms similar to that which led to the admission to the ER in the past. Compliance with medical therapy has been good, but follow up with PCP for annual visit has been uneventful (per patient and ). No regular or routine exercise. No abnormal weight gain or loss has been noted. Admission note from 02-01-18 was reviewed today. In the ER, an MRI was performed which led to diagnosis of right CVA and consultation with neurology. Patient states that he has "...known about the murmur for some time..." but has not had a work up on this sign. Family history of father "...with hundreds of strokes..." in the past, and work up led to finding of a "blood problem". Plan: (1) LINQ implant is scheduled for today for further assessment of the arrhythmia burden given the large CVA noted (2) Would continue therapy on ASA given CV risks (3) Cardizem to continue as at present for HTN (4) Aggressive DM control should continue (5) Would ensure this patient follows up with cardiology/CT surgery in the outpatient setting (about one week from discharge) Subjective: No cardiovascular complaints Objective: Vital Signs (8 Hrs) Temp Pulse Resp BP Pulse Ox 02/03/18 08:00 36.9 C 75 20 130/82 H 94 02/03/18 04:00 36.4 C 86 16 140/85 H 98 Intake/Output (24 Hrs) 02/02/18 02/03/18 02/04/18 05:59 05:59 05:59 Intake Total 2000 Output Total 500 1500 Balance 1500 -1500 Intake: Oral (ml) 700 IV Infused (ml) 1300 Ns 1,000 ml @ 75 mls/hr 300 IV CONT MARIA DOLORES Rx#: [id number] Output: Urine (ml) 500 1500 Toilet 500 1500 Other: Weight 105.233 kg Intake Quantity Yes Sufficient Number of Voids 1 Toilet 2 1 Result Diagrams: 02/03/18 04:41 02/03/18 04:41 Cardiac Labs: Cardiac Lab Results (72 Hrs) 02/02/18 02/02/18 09:24 05:45 Troponin I 0.116 H 0.123 H Telemetry: sinus rhythm with frequent PVCs Echocardiogram: critical - Physical Exam Constitutional: WDWN, healthy appearing, no apparent distress Eyes: PERRL, EOMI Ears, Nose, Mouth, Throat: moist mucous membranes Cardiovascular: regular rate and rhythm, systolic murmur (IV/ FRANCINE), No jugular vein distention Peripheral Pulses: 2+: dorsalis-pedis (R), dorsalis-pedis (L) Respiratory: clear to auscultate bilat, no crackles, no wheezes Gastrointestinal: normoactive bowel sounds Skin: no rashes, no edema Musculoskeletal: no muscular tenderness Neurologic: AAOx3, CN II-XII grossly intact Psychiatric: cooperative, interactive, following commands ICD10 Worksheet Patient Problems: Problems Problem Status Onset Aortic stenosis, severe Acute Stroke Acute Urinary incontinence Acute
[2018-02-03] MEDS: ASPIRIN 81 MG CHEWABLE TAB PO SCH ×2 (10:49→12:59)
[2018-02-03] MEDS: ENOXAPARIN 40 MG/0.4 ML SYR SC SCH (10:50)
[2018-02-03 11:47] VITALS: BP 122/65
--- NOTE | 2018-02-03 12:19 | SUROPNOTE ---
[facility] Operative Report - Surgery LOOP RECORDER IMPLANT Device implanted: ALESIA (SN: [id number]) Date of implant: 02-03-18 Indication for implant: Cryptogenic stroke Details of procedure: After consent was obtained, the patient was placed on the table in the usual sterile fashion. The patient was prepped and draped with exposure to the left sternal region. Lidocaine was used for local anesthetic. A small incision was made with a #11 blade. The provided blade was then used to facilitate appropriate width and breath. The rail delivery system was then inserted into the small incision. This rail system was then inverted to allow elevation for the device insertion. The device was implanted without difficulty. The rail delivery system was then removed. The pocket was inspected to ensure all of the device was securely inside the pocket. Kathy were used to close the incision. There were no complications appreciated in this procedure. The device was interrogated to ensure adequate wave forms noted. Outpatient follow up with cardiology was scheduled.
--- NOTE | 2018-02-03 12:39 | PDIAF ---
- Diagnosis Code Status: Full Code - Medication Management Discharge Medications: Medications to Continue on Transfer Allopurinol [Allopurinol 300 MG (RX)] 300 mg PO DAILY 10/16/14 [Last Taken 02/01] Aspirin [Aspirin 81mg (*)] 81 mg PO DAILY 10/16/14 [Last Taken 02/01/18 09:30] Diltiazem Cd [Cardizem ER Q24hr] 180 mg PO DAILY 10/16/14 [Last Taken 02/01/18] Diltiazem HCl [Diltiazem 24Hr ER] 240 mg PO DAILY 10/16/14 [Last Taken 02/01/18] Herbals/Supplements -Info Only 1 ea PO DAILY 10/16/14 [Last Taken 02/01/18] Loratadine [Claritin] 10 mg PO DAILY 10/16/14 [Last Taken 01/31/18] Losartan/Hydrochlorothiazide [Losartan-Hctz 100-25 mg Tab] 1 each PO DAILY 10/16 [Last Taken 02/01/18] Multivitamins [Multivitamin (*)] 1 each PO DAILY 10/16/14 [Last Taken 02/01/18] metFORMIN HCL [Glucophage 500 mg (*)] 500 mg PO BIDMEAL 10/16/14 [Last Taken 09:00] Atorvastatin Calcium [Lipitor 40 mg (*)] 40 mg PO DAILY tab 02/03/18 [Last Taken Unknown] Discharge Medications: Refer to the Discharge Home Medication list for PRN reason. - Orders Services needed: Physical Therapy, Occupational Therapy, Speech Language Pathologist Isolation Type: None Diet Texture: Regular Texture Diet, Thin Liquids, Meds Whole w/Liquids Additional Instructions: You are being discharged to inpatient rehab following your stroke. Follow up with Dr. Orlando Markham, neurology, in one month. Their number is [phone]. Follow up with [facility] (you saw Dr Jose Luis Milligan while at the hospital) to assess your valve issue and your heart rhythm. The only new medication for you is atorvastatin, which is a cholesterol medication. - Follow Up Care Current Providers and Referrals: Sherrie Gann MD [Primary Care Provider] - As per Instructions
--- NOTE | 2018-02-03 12:57 | ASMTLACE ---
LACE Length of stay for Answers: 3 days current admission Acuity / Level of Answers: Yes Care: Did the patient have an inpatient admission? Comorbidities - select Answers: Cerebrovascular disease all that apply (CVA, TIA, aneurysms, vasc ular dementia) Diabetes (uncontrolled or controlled) Other Notes: HTN; Hypothyroid; GERD # of Emergency department Answers: 1-2 visits in the last 6 months Score: 10 Date Signed: 02/03/2018 12:56 PM Electronically Signed By:SASCHA Hough
--- NOTE | 2018-02-03 12:58 | ASMTCMCOM ---
CM Note CM Note Notes: Pt medically stable for d/c to [facility] inpatient rehab. Orders to be obtained via Smart[employer]. Pt Elma to transport. RN September to call report. Date Signed: 02/03/2018 12:57 PM Electronically Signed By:SASCHA Hough
--- NOTE | 2018-02-03 19:35 | PDDCSUM ---
Discharge Summary Discharge Summary: Date of Admission: 02/01/2018 Date of Discharge: 02/03/2018 Consultants: neurology, cardiology Procedures/Studies: TTE, CTA head/neck, brain MRI, LINQ implantation Disposition: inpatient rehab Discharge Diagnoses: 1. Acute right parietal ischemic infarct 2. Severe aortic valve stenosis 3. Hypertension 4. Type 2 diabetes 5. H/o parathryoidectomy Brief Hospital Course by Problem: 1. Acute right parietal ischemic infarct: Manifested as dysarthria, mild left facial droop, left upper extremity weakness, questionable left hemineglect. Brain imaging also showed a chronic left parietal infarct making an embolic source of stroke a possibility. A LINQ was placed to evaluate for occult atrial fibrillation. A hypercoagulable evaluation was undertaken given the patient's family history of several CVAs in his father; however, these results were negative thus far. Factor V Leiden mutation was pending at discharge. 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 Discharged on aspirin and atorvastatin. 2. Severe aortic valve stenosis: New diagnosis. Demonstrated on TTE with ANGÉLICA 0.7cm2, mean AV gradient 75mmHg. He is compensated on exam and denies an dyspnea on exertion, syncope, or anginal symptoms. Cardiology and CT surgery evaluated. Neurology would like to wait roughly 6 weeks after CVA before pursuing intervention. 3. Hypertension: BP well controlled on home losartan/hctz and diltiazem. 4. Diabetes: A1c 6.3%. Continued metformin at discharge. 5. Hyperparathyroidism: s/p parathyroidectomy. Ca++ wnl. Medications: Please refer to EMR for complete list. Additions this hospitalization include atorvastatin. Follow Up Plan: 1. Cardiology in 1 week 2. Cardiology and CT surgery in 6 weeks to potentially pursue valve replacement Physical Exam: Vitals reviewed, BP controlled. Alert and oriented. Mild left facial droop, 4/5 strength in LUE, mild dysarthria that have not changed over last 24 hours. Lungs clear, no JVD, no LE edema. Harsh, 3/6 systolic murmur heard best at RUSB with radiation to carotids with clear S2. Frequent ectopy on cardiac exam.
== END 2018-02-03 15:17 | DRG 42 ==
LOC: OBSVTOIN 17:30 → F3N 21:15
PROVIDERS: ADMIT Internal Medicine; ATTEND Internal Medicine
PROC: 0JH632Z Insertion of Monitoring Device into Chest Subcutaneous Tissue and Fascia, Percutaneous Approach (ICD-10-PCS; principal; 2018-02-03)
DX: I63.9 Cerebral infarction, unspecified (principal); I35.0 Nonrheumatic aortic (valve) stenosis; E11.9 Type 2 diabetes mellitus without complications; E03.9 Hypothyroidism, unspecified; K21.9 Gastro-esophageal reflux disease without esophagitis; E21.3 Hyperparathyroidism, unspecified; R32 Unspecified urinary incontinence; G62.9 Polyneuropathy, unspecified; E78.5 Hyperlipidemia, unspecified; Z87.440 Personal history of urinary (tract) infections
CPT/HCPCS: 85300-90; 85303-90; 85306-90; 92507-GN; 92523-GN; 92526-GN; 92610-GN; 97116-GP; 97162-GP; 97167-GO; 97530-GP; C1764; G8978-GP-CK; G8979-GP-CI; G8987-GO-CK; G8988-GO-CJ; G9165-GN-CJ; G9166-GN-CI; J1650; J1815; Q9967

== ENCOUNTER 2018-02-06 18:09 | Observation (INO) | payer OTHER, MEDICARE ==
[2018-02-06 19:01] LABS: PLATELET COUNT 159 10^3/uL (150-400)
[2018-02-06] MEDS ORDERED: ACETAMINOPHEN 325 MG TAB PO PRN (20:15)
[2018-02-06] MEDS ORDERED: ONDANSETRON 4 MG/2 ML VIAL IVP PRN (20:15)
--- NOTE | 2018-02-06 21:00 | GHP ---
DATE OF ADMISSION: 02/06/2018 CHIEF COMPLAINT: Bradycardia and weakness. HISTORY: Bryon is a 67-year-old male who was recently admitted on February 01 with an acute middle cer ebral artery stroke. He was transferred to rehab 2 days later on February 03 and is now being transfer red back from inpatient rehab to the acute care hospital due to the acute onset of bradycardia. His stroke was right middle cerebral artery and left him with a left-sided weakness. There were areas on his imaging that looked embolic in nature with a high suspicion for AFib, and so a LINQ monitor was placed. He was doing well at rehab until today. His LINQ monitor started to suddenly alarm. A few minutes later he got acutely lethargic and weak. He denies any chest pain or shortness of breath. H e denies any change in his neuro exam. He denies any decreased oral intake. He has been on a stable dose of diltiazem for many, many years. Incidentally, noted during this recent hospitalization was critical aortic stenosis seen on his echoc ardiogram. His aortic valve area was 0.7, and his mean gradient was 75. CT Surgery was consulted. He absolutely needs a valve replacement. However, recommendations were to wait for 6 weeks post-stro ke prior to undergoing a CT surgery. PAST MEDICAL HISTORY: 1. Critical aortic stenosis. Aortic valve area 0.7 cm2. Mean gradient 75 mmHg. 2. Recent middle cerebral artery stroke. 3. Diabetes type 2. 4. Chronic kidney disease. Baseline creatinine 1.2. 5. Hypertension. 6. Gout. 7. Hyperparathyroidism status post parathyroidectomy. MEDICATIONS: Please see computer record for a full detailed list. ALLERGIES: Niacin. SOCIAL HISTORY: No smoking. No alcohol. Lives with his . He works in [employer]. REVIEW OF SYSTEMS: Complete review of systems obtained. Review of systems negative regarding consti tutional, HEENT, GI, pulmonary, cardiovascular, , hematology, endocrine, psychiatry, exce pt for positives as in HPI. FAMILY HISTORY: Reviewed, noncontributory to presenting complaint. PHYSICAL EXAMINATION: GENERAL: Well-developed, well-nourished male in no acute distress. VITAL SIG NS: Temperature is 36.7, pulse 76, blood pressure 159/79, saturating 94% on room air. EYES: On exa mination normal conjunctivae. Pupils react to light. ENT: Normal ears and nose. Hearing intact. Teeth, oropharynx moist. NECK: Trachea midline. No thyromegaly. CHEST: Normal respiratory effort . Lungs clear to auscultation bilaterally. CARDIOVASCULAR SYSTEM: He is in trigeminy. There is an murmur heard best at his right upper sternal border. No lower extremity edema. ABDOMEN: Soft, nontender. No hepatosplenomegaly. SKIN: Warm, dry, intact. No rash. MUSCULOSKELETAL: No cyanosi s or clubbing. Strength is reduced in his left upper extremity more than his left lower extremity. NEURO: Cranial nerves intact. Normal sensation to light touch. PSYCHIATRIC: Alert and oriented x3 . Normal affect. Normal judgment. Insight normal. LABORATORIES: White count 8.12, hematocrit 46.8, platelets 159. Sodium 138, potassium 3.7, chloride 103, bicarb 23, BUN 26, creatinine 1.4, glucose 161. Troponins negative. EKG is viewed by me. My personal interpretation is normal sinus rhythm, trigeminy, T-wave inversions at V3-V6. Chest x-ray: Possible mild CHF. This case was discussed with Dr. Tuan cardona at the rehab today who made the decision to come bring him back to the hospital. ASSESSMENT AND PLAN: 1. Acute bradycardia. He has not had any change in his diltiazem dose for many years, so it would b e unusual that it would suddenly cause such bradycardia. We will check a head CT to rule out hemorrh agic conversion of his stroke. Will follow serial troponins to rule out cardiac ischemia. We will i nterrogate his LINQ monitor to assess for rhythm findings during the period at rehab. Will hold his diltiazem. 2. Recent middle cerebral artery stroke. By imaging it was suspicious for embolic, so a LINQ monito r is in place. Continue aspirin and statin. He will need to return to rehab. 3. Critical aortic stenosis. Aortic valve area 0.7 cm2, mean gradient 75. CT Surgery does not plan to proceed until 6 weeks post-stroke to give the brain adequate time to heal. 4. Acute on chronic kidney disease. Baseline creatinine is 1.2. I will avoid IV fluid due to his c ritical aortic stenosis, as I do not want to throw him into any pulmonary edema. Will hold his losar monet and hydrochlorothiazide as well as metformin. I suspect poor renal perfusion due to critical aor tic stenosis is contributing. We may need to totally reconsider his blood pressure regimen. I do no t think any medications were changed at the time of the diagnosis of this current valve abnormality. 5. Code status, full. 6. Admission status. Will admit to observation and reevaluate tomorrow regarding the ongoing need f or hospitalization. 7. Deep vein thrombosis prophylaxis. He is high risk. Will place him on subcu Lovenox. /[id number]/MODL
[2018-02-07] MEDS ORDERED: CETIRIZINE 10 MG TAB PO SCH (09:00)
[2018-02-07] MEDS ORDERED: MULTIVITAMINS 1 EACH TAB PO SCH (09:00)
[2018-02-07] MEDS ORDERED: ATORVASTATIN CALCIUM 40 MG TAB PO SCH (09:00)
[2018-02-07] MEDS ORDERED: ALLOPURINOL 300 MG TAB PO SCH (09:00)
[2018-02-07] MEDS ORDERED: ASPIRIN 81 MG CHEWABLE TAB PO SCH (09:00)
[2018-02-07] MEDS ORDERED: ENOXAPARIN 40 MG/0.4 ML SYR SC SCH (09:00)
[2018-02-07] MEDS ORDERED: POTASSIUM CL 20 MEQ TAB PO ONE (09:49)
--- NOTE | 2018-02-07 09:54 | HOSPPROG ---
Hospitalist Progress Note Assessment/Plan: #Bradycardia: reported 30s at rehab. LINQ showed HR 50s. Dr. Sales evaluated, no 3/o randall, pauses or a fib. Cont current meds #Mild SAMSON: mildly dehydrated. Diuretic held #Severe aortic stenosis: needs valve replacement. CT has evaluated in past, but goal would be 6 weeks out from CVA #Recent MCV stroke: left hemiparesis. Has been doing well at inpatient rehab #DM: resume Metformin #HTN: resume home BP meds #DvT ppx: Lovenox #Disp: transfer back to Inpatient Rehab if no other cardiac testing warranted # Subjective: no chest pain, SOB Objective: Vital Signs Temp Pulse Resp BP Pulse Ox 36.6 C 73 16 132/76 H 94 02/07/18 08:13 02/07/18 08:13 02/07/18 08:13 02/07/18 08:13 02/07/18 08:13 Laboratory Results 02/06/18 18:45 02/07/18 05:32 02/06/18 02/07/18 02/08/18 05:59 05:59 05:59 Intake Total 250 Balance 250 - Time Spent With Patient Time Spent with Patient: greater than 35 minutes Time Spent with Patient: Greater than 35 minutes spent on this patients care, greater than 50% of time spent counseling, educating, and coordinating care regarding the above mentioned plan. - Physical Exam Constitutional: no apparent distress Eyes: PERRL Cardiovascular: systolic murmur (harsh murmur), bradycardia Respiratory: no respiratory distress Gastrointestinal: normoactive bowel sounds Genitourinary: no bladder fullness Musculoskeletal: other (left hemiparesis) Neurologic: AAOx3, CN II-XII Intact ICD10 Worksheet Patient Problems: Problems Problem Status Onset Aortic stenosis, severe Acute Stroke Acute Urinary incontinence Acute
[2018-02-07] MEDS ORDERED: GUAIFENESIN/DM 10 ML UDCUP PO PRN (11:47)
--- NOTE | 2018-02-07 11:48 | PDOREHIP ---
Admission [facility] - Admission - 3 Day Assessment Period Admission Date/Day 1: 02/06/18 Day 2: 02/07/18 Day 3: 02/08/18 - Active Diagnoses Comorbidities and Co-existing Conditions at Admission: 70549. DM (e.g. diabetic retinopathy, nephropathy, and neuropathy) - Skin Conditions Unhealed Pressure Ulcer (1 or more/Stage 1 or >)-Admission: 0. No
--- NOTE | 2018-02-07 11:49 | PDOREHIP ---
Admission [facility] - Admission - 3 Day Assessment Period Admission Date/Day 1: 02/06/18 Day 2: 02/07/18 Day 3: 02/08/18 Discharge [facility] - Discharge Skin Conditions Unhealed Pressure Ulcer (1 or more/Stage 1 or >)-Discharge: 0. No
[2018-02-07 12:14] VITALS: BP 135/78
--- NOTE | 2018-02-07 13:00 | PDIAF ---
- Diagnosis Diagnosis: weakness Code Status: Full Code - Medication Management Discharge Medications: Medications to Continue on Transfer Allopurinol [Allopurinol 300 MG (RX)] 300 mg PO DAILY 10/16/14 [Last Taken 02/06 08:43] Aspirin [Aspirin 81mg (*)] 81 mg PO DAILY 10/16/14 [Last Taken 02/06/18 08:43] Diltiazem Cd [Cardizem ER Q24hr] 180 mg PO DAILY 10/16/14 [Last Taken 02/06/18 08:45] Diltiazem HCl [Diltiazem 24Hr ER] 240 mg PO DAILY 10/16/14 [Last Taken 02/06/18 08:45] Herbals/Supplements -Info Only 1 ea PO DAILY 10/16/14 [Last Taken 02/01/18] Loratadine [Claritin] 10 mg PO DAILY 10/16/14 [Last Taken 02/06/18 08:43] Losartan/Hydrochlorothiazide [Losartan-Hctz 100-25 mg Tab] 1 each PO DAILY 10/16 [Last Taken 02/06/18 08:46] Multivitamins [Multivitamin (*)] 1 each PO DAILY 10/16/14 [Last Taken 02/06/18 08:45] metFORMIN HCL [Glucophage 500 mg (*)] 500 mg PO BIDMEAL 10/16/14 [Last Taken 08/21 17:06] Atorvastatin Calcium [Lipitor 40 mg (*)] 40 mg PO DAILY tab 02/03/18 [Last Taken 02/06/18 08:43] guaiFENesin/DEXTROMETHORPHAN [Robitussin Dm Oral Liquid (*)] 10 ml PO Q4HRS PRN ml 02/07/18 [Last Taken Unknown] Discharge Medications: Refer to the Discharge Home Medication list for PRN reason. - Orders Services needed: Registered Nurse, Certified Qa Test Analyst, Physical Therapy, Occupational Therapy, Speech Language Pathologist Isolation Type: None Diet Recommendation: cardiac -low fat low salt, ADA 2200 consistent carb Diet Texture: Regular Texture Diet - Follow Up Care Current Providers and Referrals: Patient,NotPresent [Primary Care Provider] -
--- NOTE | 2018-02-07 13:28 | GCON ---
CARDIOLOGY CONSULTATION DATE OF CONSULTATION: 02/07/2018 INDICATION FOR CONSULTATION: Bradycardia. CONSULTING PHYSICIAN: Kelly Lund MD. 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 He was also found to have an old l eft posterior occipital CVA on MRI of the brain. His workup also included a complete 2D echocardiogr am demonstrating moderate LVH with normal left ventricular function with severe calcific aortic steno sis with mean gradient of 75 mmHg and aortic valve area of 0.75 sq cm. He was consulted by Dr. Teofilo Guzman of CT Surgery, as well as Dr. Markham from Neurology. Plan at time of discharge was for pos t CVA medical therapy for 6 weeks prior to consideration of aortic valve replacement. He was dischar ged to a rehab facility on February 03. He returned to [facility] yesterday secondary to bradycardia, coupled with complaints of fatigue with heart rates in the 30s. He states that after rehab yesterday, he felt significantly fatigued. His reports that he seemed fatigued throughout the course of the day even prior to p hysical therapy. He reports that post exercise, a nurse checked his pulse with a pulse oximeter dete cting a heart rate of approximately 37 beats per minute. She tried multiple pulse oximeters with sim ilar findings, prompting emergent transfer back to [facility] for further evaluation. Upon arrival in the emergency department, he was found to have a pulse of 76, in sinus rhythm, and a blood pressure of 159/79, with oxygen saturation 94% on room air. Overnight, he has remained on telemetry demonstrating sinus rhythm with frequent PVCs. Of note, he d id undergo [employer] implantable loop recorder last Tuesday in the setting of cryptogenic CVA. I have reviewed his most recent data from his Medtr[employer] loop recorder demonstrating frequent PVCs, no evide nce of atrial fibrillation, no pauses, and no evidence of bradycardia with rates less than 30 beats p er minute. I have asked for his device to be modified to detect heart rates less than 40. Currently, at the time of my exam, he is resting comfortably. Telemetry continues to demonstrate sinus rhythm with frequent PVCs, no evidence of pauses, no evidenc e of atrial fibrillation, and no evidence of sustained ventricular tachycardia. He denies complaints of chest pain, chest pressure, shortness of breath, dyspnea, PND, orthopnea, or lower extremity edema. No complaints of near-syncope or syncope. He has been compliant with his current medications including diltiazem. He states he has been on thi s medication for years. PAST MEDICAL HISTORY: Notable for recent right middle cerebral artery CVA, old left parietal CVA on MRI, hypertension, chronic renal insufficiency with baseline creatinine approximately 1.2, type 2 sara betes, gout, history of hyperparathyroidism status post parathyroidectomy. SOCIAL HISTORY: He is a lifelong nonsmoker. He does not drink alcohol. He lives with his . 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 FAMILY HISTORY: No family history of aortic stenosis or valvular disease. He denies any family hist ory of bicuspid aortic valves. MEDICATIONS ON ADMISSION: Include losartan/hydrochlorothiazide 100/25 mg once daily, diltiazem CD 18 0 mg once daily, atorvastatin 40 mg daily, aspirin 81 mg daily, allopurinol 300 mg daily, Claritin 10 mg daily, multivitamin, and metformin 500 mg p.o. b.i.d. ALLERGIES: Include niacin. PHYSICAL EXAMINATION: VITAL SIGNS: Current blood pressure of 135/78, heart rate of 77, respiratory rate of 16, oxygen saturation 95% on room air, temperature 36.4. GENERAL: He is awake, alert, orien naina, appropriate. There is no evidence of JVP or carotid bruits. LUNGS: Clear to auscultation ante riorly. CARDIAC: S1, S2. Regular rhythm with frequent premature beats consistent with frequent PVC s. He has a 2/6 systolic murmur at the right upper sternal border without radiation. ABDOMEN: Soft , nontender, nondistended. No evidence of cyanosis, clubbing or edema. DATA: Chest x-ray from February 06, 2018 demonstrates hypoventilatory chest with peribronchial thick ening without evidence of failure, borderline cardiomegaly. CT of the head performed February 06, 2018 demonstrates evolving right frontal infarct without hemorr lasha. Telemetry demonstrates sinus rhythm with frequent PVC without pauses or evidence of atrial fibrillati on. No evidence of bradycardia. White blood cell count 8.12, hemoglobin of 16.6, hematocrit of 46.8, platelets 159. Sodium 139, pota ssium 3.7, chloride 104, bicarb 24, BUN 25, creatinine 1.2, glucose 123. Calcium 9.1, magnesium 2.0. Troponin 0.015, repeat value of 0.016, and 3rd value of 0.20. TSH 2.76. IMPRESSION: 1. Severe aortic stenosis with mean gradient of 75 mmHg and calculated valve area of 0.75 sq cm. 2. Recent right middle cerebral artery cerebrovascular accident late January 2018. 3. Frequent premature ventricular contractions. 4. Hypertension. 5. Diabetes. 6. Chronic renal insufficiency. SUMMARY: The patient presented yesterday with documented bradycardia on a heart rate detected on pul se oximeter. The patient states that pulse was never checked manually. I think that this was a spur ious reading as a result of relying on pulse data from a pulse oximeter. This is unreliable in the s etting of frequent PVCs. I do not see any evidence of bradycardia pauses on telemetry. Reebee lo op recorder interrogation from today demonstrates no evidence of pauses. No evidence of bradycardia. LINQ has been set to detect rates of 30 beats per minute or less. I have asked that this be modi ed to detect heart rates of 40 beats per minute or less. I do not think that his symptoms of fatigue are related to bradycardia. I have reviewed these findin gs with Dr. Guzman. I do not think that his recent admission for bradycardia should modify plans for aortic valve replacement surgery in approximately 6 weeks to allow for more time to heal from his rec ent CVA. I would recommend that his pulse be only checked manually. PLAN: 1. Continue current medications. 2. Recommend patient return to rehab for continued work post recent CVA. 3. Followup in our office scheduled for February 10 at 1:30 for wound and device check of his loop recorder. 4. Followup with Dr. Guzman. 5. Would not modify plans for aortic valve replacement surgery at this time. /[id number]/MODL
--- NOTE | 2018-02-07 13:28 | GDS ---
DISCHARGE DIAGNOSES: 1. Weakness. 2. Reported bradycardia. 3. Recent middle cerebral artery stroke with left hemiparesis. 4. Type 2 diabetes. 5. Chronic kidney disease with baseline creatinine 1.2. 6. Hypertension. 7. Gout. 8. Hyperparathyroidism. 9. Critical aortic stenosis. HPI: A 67-year-old male who was recently admitted, February 01, with an acute MCA stroke. He was transferred to inpatient rehab 2 days later and now being transferred back with an acute onset of bradycardia. He was working with PT and became very weak. Heart rate was noted to be in the 30s. He denied chest pain, shortness of breath, dizziness, or lightheadedness. During recent hospitalization, critical aortic stenosis was noted on echocardiogram. Aortic valve area 0.7, and mean gradient was 75. CT surgery was consulted and does need a valve replacement, however, recommend waiting 6 weeks post stroke. HOSPITAL COURSE BY PROBLEM: 1. Reported bradycardia, 30s per inpatient rehab. Dr. Sales with cardiology evaluated and reviewed all rhythms. There were no bradycardia, pauses or evidence of atrial fibrillation. Recommend continue current diltiazem dose. Changed Linq settings to alert for heart rates less than 40. 2. Recent MCA stroke. Continue aspirin and statin. Spoke with Dr. Alves who is ok with discharging home. PT/OT/SPL 3. Critical aortic stenosis. Aortic valve area 0.7 sq cm, mean gradient 75. CT will perform replacement in 6 weeks to allow healing from the stroke. 4. Acute on CKD. Baseline creatinine 1.2. Elevated 1.4 at admission. No IV fluids given with critical aortic stenosis. Is now down back at his baseline. 5. Hypertension. Resume home medications. 6. Diabetes. Resume metformin. 7. Cough. Robitussin as needed. Disp: Patient is stable for discharge back to inpatient rehab. Medication changes. None. Follow up: CT surgery. Time spent on discharge: Greater than 30 minutes, coordinating discharge and discussing case with Dr. Sales, Dr. Alves /[id number]/MODL [facility]
--- NOTE | 2018-02-07 14:01 | PDIAF ---
- Diagnosis Diagnosis: weakness Code Status: Full Code - Medication Management Discharge Medications: Medications to Continue on Transfer RX: Allopurinol [Allopurinol 300 MG (RX)] 300 mg PO DAILY 10/16/14 [Last Taken 02/06/18 08:43] RX: Aspirin [Aspirin 81mg (*)] 81 mg PO DAILY 10/16/14 [Last Taken 02/06/18 08: 43] RX: Diltiazem Cd [Cardizem ER Q24hr] 180 mg PO DAILY 10/16/14 [Last Taken 08:45] RX: Diltiazem HCl [Diltiazem 24Hr ER] 240 mg PO DAILY 10/16/14 [Last Taken 02/06 08:45] RX: Herbals/Supplements -Info Only 1 ea PO DAILY 10/16/14 [Last Taken 02/01/18] RX: Loratadine [Claritin] 10 mg PO DAILY 10/16/14 [Last Taken 02/06/18 08:43] RX: Losartan/Hydrochlorothiazide [Losartan-Hctz 100-25 mg Tab] 1 each PO DAILY 10/16/14 [Last Taken 02/06/18 08:46] RX: Multivitamins [Multivitamin (*)] 1 each PO DAILY 10/16/14 [Last Taken 08:45] RX: metFORMIN HCL [Glucophage 500 mg (*)] 500 mg PO BIDMEAL 10/16/14 [Last Taken 02/06/18 17:06] RX: Atorvastatin Calcium [Lipitor 40 mg (*)] 40 mg PO DAILY tab 02/03/18 [Last Taken 02/06/18 08:43] RX: guaiFENesin/DEXTROMETHORPHAN [Robitussin Dm Oral Liquid (*)] 10 ml PO Q4HRS PRN ml 02/07/18 [Last Taken Unknown] Discharge Medications: Refer to the Discharge Home Medication list for PRN reason. - Orders Services needed: Home Care, Physical Therapy, Occupational Therapy, Speech Language Pathologist Home Care Face to Face: I certify that this patient was under my care and that I had the required [id number] encounter meeting the encounter requirements on the discharge day. My findings support the fact that the patient is homebound as defined in Home Care Face to Face Continued: CMS Chapter 7 Medicare Benefits Manual 30.1.1 , The condition of the patient is such that there exists a normal inability to leave home and consequently, leaving home would require a considerable and taxing effort. Isolation Type: None Diet Recommendation: cardiac -low fat low salt, ADA 2200 consistent carb Diet Texture: Regular Texture Diet - Follow Up Care Current Providers and Referrals: Patient,NotPresent [Primary Care Provider] -
--- NOTE | 2018-02-07 14:48 | ASMTCMCOM ---
CM Note CM Note Notes: Patient discussed during rounds. Transferred from inpatient rehab due to low blood pressure. Medically cleared fro discharge. The patient wishes to go home and not return to rehab. Orders for HHC placed. [facility] accepting. Orders sent via allscripts. CM available should other needs arise. Plan: Home with HHC. SP, PT and OT Date Signed: 02/07/2018 02:47 PM Electronically Signed By:Etelvina Mulligan RN
--- NOTE | 2018-02-07 15:12 | ASMTLACE ---
LACE Length of stay for Answers: Less than 1 day current admission Acuity / Level of Answers: Yes Care: Did the patient have an inpatient admission? Comorbidities - select Answers: Cerebrovascular disease all that apply (CVA, TIA, aneurysms, vasc ular dementia) Diabetes (uncontrolled or controlled) Other Notes: CKD; HTN # of Emergency department Answers: 1-2 visits in the last 6 months Score: 7 Date Signed: 02/07/2018 02:58 PM Electronically Signed By:Etelvina Mulligan RN
[2018-02-07] MEDS ORDERED: metFORMIN HCL 500 MG TAB PO SCH (18:00)
--- NOTE | 2018-02-09 15:00 | ASDISCHSUM ---
Discharge Information Plan Status:Home with Home Health Medically Cleared to Leave:02/07/2018 Discharge Date:02/07/2018 03:54 PM D/C Disposition:Home Health Service [facility] D/C Disposition:[id number] Projected Discharge Date:02/07/2018 11:00 AM Transportation at D/C:Family Discharge Delay Reason: Follow-Up Date:02/07/2018 11:00 AM Discharge Slot: Final Diagnosis: Placement Information Referral Type:*Home Health Care Services Referral ID:[id number] Provider Name:[facility] Address 1:[address] Address 2: City:[place] Selection Factors: State:[place] Patient Contact Information Contact Name:SILVIA Relationship: Address: [address] City:[place] Alternate Phone: State/Zip Code:[place] [address] Email: Financial Information Financial Class:Medicare Primary Plan Desc:MEDICARE OUTPATIENT Primary Plan Number:[id number] Secondary Plan Desc:AARP/MDR SUPPLEMENT Secondary Plan Number:[id number] Assessment Information LACE LACE Length of stay for Answers: Less than 1 day current admission Acuity / Level of Answers: Yes Care: Did the patient have an inpatient admission? Comorbidities - select Answers: Cerebrovascular disease all that apply (CVA, TIA, aneurysms, vasc ular dementia) Diabetes (uncontrolled or controlled) Other Notes: CKD; HTN # of Emergency department Answers: 1-2 visits in the last 6 months Score: 7 Date Signed: 02/07/2018 02:58 PM Electronically Signed By:Etelvina Mulligan RN [facility] Progress Note CM Note CM Note Notes: Patient discussed during rounds. Transferred from inpatient rehab due to low blood pressure. Medically cleared fro discharge. The patient wishes to go home and not return to rehab. Orders for HHC placed. [facility] accepting. Orders sent via [facility]. CM available should other needs arise. Plan: Home with HHC. SP, PT and OT Date Signed: 02/07/2018 02:47 PM Electronically Signed By:Etelvina Mulligan RN Intervention Information
== END 2018-02-07 15:54 | disposition home health service (06) ==
LOC: F2W 18:25 → INTOOBSV 18:25 → UNDOADMIN 18:30 → F2W 18:30
PROVIDERS: ADMIT Internal Medicine; ATTEND Internal Medicine
DX: R53.1 Weakness (principal); R94.39 Abnormal result of other cardiovascular function study; I49.3 Ventricular premature depolarization; I69.354 Hemiplegia and hemiparesis following cerebral infarction affecting left non-dominant side; E11.40 Type 2 diabetes mellitus with diabetic neuropathy, unspecified; I10 Essential (primary) hypertension; M10.9 Gout, unspecified; E03.9 Hypothyroidism, unspecified; K21.9 Gastro-esophageal reflux disease without esophagitis; E21.3 Hyperparathyroidism, unspecified; I35.0 Nonrheumatic aortic (valve) stenosis
CPT/HCPCS: 70450; 71045; 97112; 97161; G0378; G8978; G8979; J1650

== ENCOUNTER 2018-05-27 22:53 | Inpatient (IN) | payer OTHER, MEDICARE ==
--- NOTE | 2018-05-27 23:27 | EDPHY ---
H & P Stated Complaint: CHEST DISCOMFORT X 1 HR Time Seen by Provider: 05/27/18 23:06 HPI/ROS: HPI The patient presents with chest pain which began at about 10:00 p.m. Tonight after he had just got into bed. He was doing some arms stretches before getting into bed. After lying in bed for a few minutes he developed slow onset of left-sided chest heaviness which is moderate in nature and does not radiate. It is not associated with shortness of breath, nausea, vomiting, dizziness, diarrhea. He during the day today did not feel himself, had increased urination and was not very hungry. He is not on any new medications except for a statin. He has an implanted heart monitor and triggered the alarm when he was having the discomfort. REVIEW OF SYSTEMS 10 systems were reviewed and negative with the exception of the elements mentioned in the history of present illness. PMHx: Severe aortic stenosis awaiting operation next month, type 2 diabetes, chronic kidney disease, hypertension, hypercholesterolemia Soc Hx: Here with his PHYSICAL General Appearance: Alert, no distress Eyes: Pupils equal and round no pallor or injection ENT, Mouth: Mucous membranes moist Respiratory: There are no retractions, lungs are clear to auscultation Cardiovascular: Regular rate and rhythm , holosystolic murmur is present Gastrointestinal: Abdomen is soft and non-tender, no masses, bowel sounds normal Neurological: A&O, moves all extremities Skin: Warm and dry, no rashes Musculoskeletal: Neck is supple non tender Extremities: symmetrical, full range of motion Psychiatric: Patient is oriented X 3, there is no agitation Source: Patient Exam Limitations: No limitations - Medical/Surgical History Hx Asthma: No Hx Chronic Respiratory Disease: No Hx Diabetes: Yes Hx Cardiac Disease: Yes Hx Renal Disease: No Hx Cirrhosis: No Hx Alcoholism: No Hx HIV/AIDS: No Hx Splenectomy or Spleen Trauma: No Other PMH: NIDDM, left fittle finger surgery for cyst, parathryoid surgery 3-4 yrs ago, 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, stroke - Social History Smoking Status: Never smoked Constitutional: Initial Vital Signs Temperature (C) 36.6 C 05/27/18 22:58 Heart Rate 85 05/27/18 22:58 Respiratory Rate 18 05/27/18 22:58 Blood Pressure 159/84 H 05/27/18 22:58 O2 Sat (%) 95 05/27/18 22:58 O2 Delivery Mode Room Air Allergies/Adverse Reactions: niacin [From Niaspan Extended-Release] Allergy (Mild, Unverified 02/01/18 18:24) [place] Home Medications: Medication Instructions Recorded Allopurinol [Allopurinol 300 MG 300 mg PO DAILY 10/16/14 (RX)] Aspirin [Aspirin 81mg (*)] 81 mg PO DAILY 10/16/14 Diltiazem Cd [Cardizem ER Q24hr] 180 mg PO DAILY 10/16/14 Diltiazem HCl [Diltiazem 24Hr ER] 240 mg PO DAILY 10/16/14 Herbals/Supplements -Info Only 1 ea PO DAILY 10/16/14 Loratadine [Claritin] 10 mg PO DAILY 10/16/14 Losartan/Hydrochlorothiazide 1 each PO DAILY 10/16/14 [Losartan-Hctz 100-25 mg Tab] Multivitamins [Multivitamin (*)] 1 each PO DAILY 10/16/14 metFORMIN HCL [Glucophage 500 mg 500 mg PO BIDMEAL 10/16/14 (*)] Atorvastatin Calcium [Lipitor 40 40 mg PO DAILY tab 02/03/18 mg (*)] guaiFENesin/DEXTROMETHORPHAN 10 ml PO Q4HRS PRN ml 02/07/18 [Robitussin Dm Oral Liquid (*)] Medical Decision Making - Diagnostics EKG Interpretation: EKG: Complete interpretation has been separately recorded in the [facility] archive. Summary impression: Normal sinus rhythm, Pac is present Imaging Results: Imaging Impressions Chest X-Ray 05/27/18 23:24 Impression: 1. Stable mild cardiomegaly. 2. Poor inspiration similar to the prior study. 3. Stable mild peribronchial cuffing in the perihilar region bilaterally. Consider chronic bronchitis or reactive airways disease. Imaging: I viewed and interpreted images myself Differential Diagnosis: 67-year-old male with severe aortic stenosis awaiting valve replacement, diabetes, hypertension, chronic kidney disease presents from home with chest pressure which began at about 10:00 p.m. Tonight. Here, he is slightly hypertensive, other vital signs are normal. He does not show any signs of overt CHF. Labs were checked and troponin is negative, BNP is elevated at 1999, though I do not have an old for comparison, EKG shows no ST segment change. I have calculated his heart score at 4. On reassessment, patient's pain has improved significantly. However, given his elevated heart score, I feel he should be admitted to the hospital for evaluation, possible echo to evaluate the severity of his aortic stenosis to see if this may be cause of pain verses ACS. Patient has not had any recent provocative cardiac testing. I have consulted with Dr. Barillas who will admit the patient to the PCU. - Data Points Laboratory Results: Laboratory Results 05/27/18 23:10 05/27/18 23:10 05/27/18 05/27/18 05/27/18 23:22 23:10 23:10 WBC 11.30 10^3/uL H 10^3/uL (3.80-9.50) RBC 5.89 10^6/uL 10^6/uL (4.40-6.38) Hgb 17.6 g/dL H g/dL (13.7-17.5) Hct 49.8 % % (40.0-51.0) MCV 84.6 fL fL (81.5-99.8) MCH 29.9 pg pg (27.9-34.1) MCHC 35.3 g/dL g/dL (32.4-36.7) RDW 13.3 % % (11.5-15.2) Plt Count 155 10^3/uL 10^3/uL (150-400) MPV 11.0 fL fL (8.7-11.7) Neut % (Auto) 73.1 % % (39.3-74.2) Lymph % (Auto) 13.5 % L % (15.0-45.0) Major % (Auto) 10.6 % % (4.5-13.0) Eos % (Auto) 1.8 % % (0.6-7.6) Baso % (Auto) 0.6 % % (0.3-1.7) Nucleat RBC Rel Count 0.0 % % (0.0-0.2) Absolute Neuts (auto) 8.27 10^3/uL H 10^3/uL (1.70-6.50) Absolute Lymphs (auto) 1.52 10^3/uL 10^3/uL (1.00-3.00) Absolute Monos (auto) 1.20 10^3/uL H 10^3/uL (0.30-0.80) Absolute Eos (auto) 0.20 10^3/uL 10^3/uL (0.03-0.40) Absolute Basos (auto) 0.07 10^3/uL 10^3/uL (0.02-0.10) Absolute Nucleated RBC 0.00 10^3/uL 10^3/uL (0-0.01) Immature Gran % 0.4 % % (0.0-1.1) Immature Gran # 0.04 10^3/uL 10^3/uL (0.00-0.10) Sodium 136 mEq/L mEq/L (135-145) Potassium 4.3 mEq/L mEq/L (3.5-5.2) Chloride 103 mEq/L mEq/L (97-110) Carbon Dioxide 22 mEq/l mEq/l (22-31) Anion Gap 11 mEq/L mEq/L (6-14) BUN 17 mg/dL mg/dL (7-23) Creatinine 1.0 mg/dL mg/dL (0.7-1.3) Estimated GFR > 60 Glucose 101 mg/dL H mg/dL (70-100) Calcium 10.2 mg/dL mg/dL (8.5-10.4) POC Troponin I 0.07 ng/mL ng/mL (0.00-0.08) NT-Pro-B Natriuret Pep 2010 pg/mL H pg/mL (0-125) Specimen Hemolysis 103 Point of Care Test Results: Chemistry 05/27/18 23:22 POC Troponin I 0.07 ng/mL ng/mL (0.00-0.08) Departure - Departure Disposition: [facility] Inpatient Acute Clinical Impression: Chest pain, Aortic stenosis, severe Condition: Fair Referrals: Sherrie Gann MD [Primary Care Provider] - As per Instructions
[2018-05-27 23:35] LABS: PLATELET COUNT 155 10^3/uL (150-400)
[2018-05-28] MEDS ORDERED: ONDANSETRON 4 MG/2 ML VIAL IVP PRN (00:41)
[2018-05-28] MEDS ORDERED: ACETAMINOPHEN 325 MG TAB PO PRN (00:41)
[2018-05-28] MEDS ORDERED: ONDANSETRON DISINTEGRATING 4 MG TAB PO PRN (00:41)
--- NOTE | 2018-05-28 01:30 | PDGENHP ---
History and Physical - Chief Complaint Chest pain - History of Present Illness 67 yo M w/ hx of severe , CVA, DM, and HTN presents after episode of chest pain. He was getting into bed around 10 PM when he noticed central and left- sided chest pressure. This is a new symptom for him, he has not had similar pain the past. He denies associate symptoms such as radiation of pain, shortness of breath, or diaphoresis. He continues to have mild discomfort but it is almost completely gone. Work-up in the ED reassuring with non-ischemic ECG and negative troponin. He is being admitted for further work-up. Of note, the patient is undergoing evaluation for surgical AVR, He has a cath scheduled for 06/13, with tentatively scheduled surgery on 06/[address] Guzman. Case discussed with Dr. Jo; records reviewed and summarized above. History Information - Allergies/Home Medication List Allergies/Adverse Reactions: niacin [From Niaspan Extended-Release] Allergy (Mild, Unverified 02/01/18 18:24) [place] Home Medications: Allopurinol [Allopurinol 300 MG (RX)] 300 mg PO DAILY 10/16/14 [Last Taken 02/06 08:43] Aspirin [Aspirin 81mg (*)] 81 mg PO DAILY 10/16/14 [Last Taken 02/06/18 08:43] Diltiazem Cd [Cardizem ER Q24hr] 180 mg PO DAILY 10/16/14 [Last Taken 02/06/18 08:45] Diltiazem HCl [Diltiazem 24Hr ER] 240 mg PO DAILY 10/16/14 [Last Taken 02/06/18 08:45] Herbals/Supplements -Info Only 1 ea PO DAILY 10/16/14 [Last Taken 02/01/18] Loratadine [Claritin] 10 mg PO DAILY 10/16/14 [Last Taken 02/06/18 08:43] Losartan/Hydrochlorothiazide [Losartan-Hctz 100-25 mg Tab] 1 each PO DAILY 10/16 [Last Taken 02/06/18 08:46] Multivitamins [Multivitamin (*)] 1 each PO DAILY 10/16/14 [Last Taken 02/06/18 08:45] metFORMIN HCL [Glucophage 500 mg (*)] 500 mg PO BIDMEAL 10/16/14 [Last Taken 08/21 17:06] I have personally reviewed and updated: family history, medical history - Past Medical History CVA (new diagnosis), diabetes type 2, hypertension, hyperlipidemia - Surgical History Additional surgical history: parathyroidectomy - Family History Positive for: stroke - Social History Smoking Status: Never smoked Review of Systems Review of Systems: ROS: 10pt was reviewed & negative except for what was stated in HPI & below Physical Exam Physical Exam: Temp Pulse Resp BP Pulse Ox 36.6 C 74 16 162/74 H 95 05/27/18 22:58 05/28/18 00:30 05/28/18 00:30 05/28/18 00:30 05/28/18 00:30 Constitutional: no apparent distress, appears nourished Eyes: PERRL, EOMI Ears, Nose, Mouth, Throat: moist mucous membranes, no oral mucosal ulcers Cardiovascular: regular rate and rhythym, systolic murmur (RUSB, 3/6) Respiratory: no respiratory distress, clear to auscultation Gastrointestinal: normoactive bowel sounds, soft, non-tender abdomen Skin: warm, normal color Musculoskeletal: full muscle strength, no muscle tenderness Neurologic: AAOx3, CN II-XII Intact Psychiatric: interacting appropriately, not anxious Lab Data & Imaging Review 05/27/18 23:10 05/27/18 23:10 WBC 11.30 10^3/uL (3.80-9.50) H 05/27/18 23:10 RBC 5.89 10^6/uL (4.40-6.38) 05/27/18 23:10 Hgb 17.6 g/dL (13.7-17.5) H 05/27/18 23:10 Hct 49.8 % (40.0-51.0) 05/27/18 23:10 MCV 84.6 fL (81.5-99.8) 05/27/18 23:10 MCH 29.9 pg (27.9-34.1) 05/27/18 23:10 MCHC 35.3 g/dL (32.4-36.7) 05/27/18 23:10 RDW 13.3 % (11.5-15.2) 05/27/18 23:10 Plt Count 155 10^3/uL (150-400) 05/27/18 23:10 MPV 11.0 fL (8.7-11.7) 05/27/18 23:10 Neut % (Auto) 73.1 % (39.3-74.2) 05/27/18 23:10 Lymph % (Auto) 13.5 % (15.0-45.0) L 05/27/18 23:10 White % (Auto) 10.6 % (4.5-13.0) 05/27/18 23:10 Eos % (Auto) 1.8 % (0.6-7.6) 05/27/18 23:10 Baso % (Auto) 0.6 % (0.3-1.7) 05/27/18 23:10 Nucleat RBC Rel Count 0.0 % (0.0-0.2) 05/27/18 23:10 Absolute Neuts (auto) 8.27 10^3/uL (1.70-6.50) H 05/27/18 23:10 Absolute Lymphs (auto) 1.52 10^3/uL (1.00-3.00) 05/27/18 23:10 Absolute Monos (auto) 1.20 10^3/uL (0.30-0.80) H 05/27/18 23:10 Absolute Eos (auto) 0.20 10^3/uL (0.03-0.40) 05/27/18 23:10 Absolute Basos (auto) 0.07 10^3/uL (0.02-0.10) 05/27/18 23:10 Absolute Nucleated RBC 0.00 10^3/uL (0-0.01) 05/27/18 23:10 Immature Gran % 0.4 % (0.0-1.1) 05/27/18 23:10 Immature Gran # 0.04 10^3/uL (0.00-0.10) 05/27/18 23:10 Sodium 136 mEq/L (135-145) 05/27/18 23:10 Potassium 4.3 mEq/L (3.5-5.2) 05/27/18 23:10 Chloride 103 mEq/L (97-110) 05/27/18 23:10 Carbon Dioxide 22 mEq/l (22-31) 05/27/18 23:10 Anion Gap 11 mEq/L (6-14) 05/27/18 23:10 BUN 17 mg/dL (7-23) 05/27/18 23:10 Creatinine 1.0 mg/dL (0.7-1.3) 05/27/18 23:10 Estimated GFR > 60 05/27/18 23:10 Glucose 101 mg/dL (70-100) H 05/27/18 23:10 Calcium 10.2 mg/dL (8.5-10.4) 05/27/18 23:10 POC Troponin I 0.07 ng/mL (0.00-0.08) 05/27/18 23:22 NT-Pro-B Natriuret Pep 2010 pg/mL (0-125) H 05/27/18 23:10 Specimen Hemolysis 103 05/27/18 23:10 Imaging Review: Imaging Impressions Chest X-Ray 05/27/18 23:24 Impression: 1. Stable mild cardiomegaly. 2. Poor inspiration similar to the prior study. 3. Stable mild peribronchial cuffing in the perihilar region bilaterally. Consider chronic bronchitis or reactive airways disease. Visualized and Interpreted Chest x-ray results: Yes Chest X-Ray results: no infiltrate Visualized and Interpreted EKG results: Yes EKG Interpretation: Positive for: normal sinsus rhythm Assessment & Plan Assessment: 67 yo M w/ hx of severe , CVA, DM, and HTN presents after episode of chest pain. Plan: 1. Chest pain - Unclear if this could be related to known severe or new CAD. HEART score of 4 denoting need for further work-up. Initial troponin negative and ECG without signs of acute ischemia. Per protocol, the patient would be indicated for pharmacologic, nuclear perfusion study. However, noting he is scheduled for a heart catheterization in the near future, it may be reasonable to proceed to the catheterization directly. - Admit to PCU for observation - Monitor on telemetry, trend cardiac enzymes - Cardiology consult placed in [facility] to consider proceeding to [facility] vs stress test - TTE ordered 2. Severe - AV area 0.7 and mean gradient of 75 mm Hg. He is currently undergoing evaluation for surgical AVR with Dr. Guzman. Prior to day of admission , he has not had prior symptoms of dyspnea, angina, syncope, or heart failure. - Acute management as above - TTE ordered 3. 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 LINQ monitor in place has not detected AF to date. - Continue home medications pending reconciliation 4. HTN - Continue home medications pending reconciliation. 5. NIDDM - On metformin only as outpatient, normoglycemic on admission. He has lost 60 lbs in the last year. - Would hold metformin initially noting possible contrast load - Will monitor BG ACHS for now, start insulin if indicated Diet - NPO pending cardiology evaluation Code - Full Ppx - LMWH Dispo - Admit under observation status
[2018-05-28 06:06] LABS: PLATELET COUNT 162 10^3/uL (150-400)
[2018-05-28] MEDS ORDERED: ENOXAPARIN 40 MG/0.4 ML SYR SC SCH (09:00)
[2018-05-28] MEDS ORDERED: MIDAZOLAM 2 MG/2 ML VIAL ONE (11:04)
[2018-05-28] MEDS ORDERED: LIDOCAINE 1% 300 MG/30 ML SDV ONE (11:04)
[2018-05-28] MEDS ORDERED: VERAPAMIL 5 MG/2 ML VIAL ONE (11:04)
[2018-05-28] MEDS ORDERED: fentaNYL 100 MCG/2 ML INJ ONE (11:04)
[2018-05-28] MEDS ORDERED: IOPAMIDOL (ISOVUE-370) 150 ML BTL IV ONE (11:05)
--- NOTE | 2018-05-28 11:37 | PDGENHP ---
History & Physical Chief Complaint: Chest Pain History of Present Illness: 67 year old male with severe with acute onset of chest pain and mild troponin elevation. Pertinent Past, Social, Family History: Severe Cardiorespiratory Assessment: NSR. 08/09 [facility] [place]
--- NOTE | 2018-05-28 11:46 | PDPROPOC ---
Sedation Plan of Care Sedation Plan of Care: vital signs stable, mental status noted, patient educated of risks, benefits, alternatives, patient can tolerate sedation ASA Classification: ASA 2 Planned drugs: fentanyl, midazolam Mallampati Score: Class 2 Mallampati Reference Image: Patient passed 3-3-2 rule?: Yes
[2018-05-28] MEDS ORDERED: ATROPINE SULFATE 1 MG/10 ML SYR IVP PRN (12:24)
[2018-05-28] MEDS ORDERED: NITROGLYCERIN 0.4 MG BTL SL PRN (12:24)
--- NOTE | 2018-05-28 12:37 | HOSPPROG ---
Hospitalist Progress Note Assessment/Plan: 67 yo M w/ hx of severe , CVA, DM, and HTN presents after episode of chest pain. Plan: 1. Chest pain - Troponin elevated overnight to 0.04, discussed with Cardiology this AM, Dr. Sales, will take for [facility] today - Monitor on telemetry - TTE ordered 2. Severe - AV area 0.7 and mean gradient of 75 mm Hg. He is currently undergoing evaluation for surgical AVR with Dr. Guzman. Prior to day of admission , he has not had prior symptoms of dyspnea, angina, syncope, or heart failure. - Acute management as above - TTE ordered - Per Dr. Sales, will likely proceed with valve replacement tomorrow after [facility] today 3. 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 LINQ monitor in place has not detected AF to date. - Continue home medications 4. HTN - Continue home medications 5. NIDDM - On metformin only as outpatient, normoglycemic on admission. He has lost 60 lbs in the last year. - Would hold metformin - Will monitor BG ACHS for now, start insulin if indicated Diet - NPO pending cardiology evaluation Code - Full Ppx - LMWH Dispo - Pending clinical course Subjective: Patient reports mild chest pain this morning Objective: Vital Signs Temp Pulse Resp BP Pulse Ox 36.4 C 70 18 137/72 H 91 L 05/28/18 07:40 05/28/18 07:40 05/28/18 07:40 05/28/18 07:40 05/28/18 07:40 Laboratory Results 05/28/18 06:00 05/28/18 06:00 - Physical Exam Constitutional: no apparent distress Eyes: PERRL Ears, Nose, Mouth, Throat: moist mucous membranes Cardiovascular: regular rate and rhythym, systolic murmur Respiratory: no respiratory distress Skin: warm Neurologic: AAOx3 Psychiatric: interacting appropriately ICD10 Worksheet Patient Problems: Problems Problem Status Onset Aortic stenosis, severe Acute Chest pain Acute Stroke Acute Urinary incontinence Acute
--- NOTE | 2018-05-28 13:53 | PDMN ---
Medical Necessity Medical necessity: Pt meets INPT criteria per MD as of 05/28/18 and [facility] (est. LOS >2 MN for eval/mgmt of chest pain with elevated troponin, severe aortic stenosis; LHC and possible valve replacement pending; comorbid DM, htn, CVA).
--- NOTE | 2018-05-28 15:05 | CPIP ---
DATE OF PROCEDURE: 05/28/2018 PROCEDURE PERFORMED: Diagnostic left heart catheterization. INDICATION FOR PROCEDURE: Chest pain, mildly elevated troponin at 0.40, and known severe aortic sten osis. Preoperative left heart catheterization in anticipation of surgical aortic valve replacement t omorrow May 29, 2018. DESCRIPTION OF PROCEDURE: After informed consent was obtained, the patient was brought to the [facility] catheterization lab where he was prepped and draped in a sterile fashion. Using 1% lidocaine, the right groin was anesthetized. Using the micropuncture, a modified Seldinger technique, [place] catheter was placed in the right co mmon femoral artery without complications. JL4 catheter was used to take images of the left coronary anatomy in multiple projections. JL4 catheter was exchanged over a guidewire for a JR4 catheter. J R4 catheter was unable to successfully cannulate the right coronary artery. This was exchanged over a guidewire for a Nick right catheter. Nick right catheter was used to cannulate the right c oronary artery. Images of the right coronary artery were obtained in multiple projections. Nick right catheter was exchanged over a guidewire without complications. No attempts to cross the aorti c valve or perform left ventriculogram were performed in the setting of severe calcific aortic stenos is. Right common femoral artery angiography demonstrated appropriate placement of the 6-[place]izen [place] sheath bel ow the inguinal ligament and above the bifurcation amenable to closure device. FINDINGS: 1. Left main is long in size and caliber, trifurcate into a left anterior descending ramus branch an d circumflex vessel. There is no evidence of coronary disease within the left main. 2. Left anterior descending vessel gives rise to a moderate-size 1st diagonal branch. There is no e vidence of coronary disease in the diagonal branch. There is a 50% to 60% mid left anterior descendi ng lesion just distal to the first diagonal branch. There is no evidence of coronary disease within the remainder of the left anterior descending. There are multiple septal branches without evidence o f coronary disease. 3. Ramus branch demonstrates mild luminal irregularities with no flow-limiting disease. 4. Circumflex vessel is a nondominant vessel. There is some mild luminal irregularities with no licha dence of flow-limiting coronary disease. 5. Right coronary artery is a dominant, large caliber vessel that bifurcates into posterior descendi ng artery and PLV branch. There is no evidence of coronary disease within the right coronary artery. CONCLUSIONS: 1. Single-vessel disease with 50% to 60% mid left anterior descending stenosis just distal to the fi rst diagonal branch. 2. Mild luminal irregularities within the circumflex, ramus branch. 3. Normal dominant right coronary artery. PLAN: 1. Will review images with Dr. Guzman. 2. Would consider LUJAN to LAD at the time of surgical aortic valve replacement. /[id number]/MODL
--- NOTE | 2018-05-28 17:33 | GCON ---
CARDIOLOGY CONSULTATION DATE OF CONSULTATION: 05/28/2018 REFERRING PHYSICIAN: Jeff Barillas MD INDICATION FOR CONSULTATION: Chest pain in the setting of a known history of severe aortic stenosis. HISTORY OF PRESENT ILLNESS: The patient is a pleasant 67-year-old gentleman who is known to [facility] in the setting of a known history of severe aortic stenosis that was discovered on echocardiogr am performed on February 02, 2018. His echocardiogram at that time demonstrated normal left ventricula r function with moderate concentric LVH. Aortic valve was severely calcified. Bicuspid aortic valve could not be excluded. Mean gradient across mitral valve of 75 mmHg. Dimensionless index of 0.21 c onsistent with severe aortic stenosis. He had been seen in consultation by Dr. Teofilo Guzman on February 21, 2018, with plans for left heart catheterization in early June 2018, followed by surgical aortic valve replacement. 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 He had residual left-sided weakness and was using a cane for support. Dec ision to delay was to allow his neurologic symptoms to improve. The patient was doing well until last evening around 10 p.m. when he was going to bed when he develop ed an acute onset of substernal left-sided chest pressure. This is something new that he has never e xperienced in the past. He had no associated shortness of breath, nausea, vomiting, or diaphoresis. Symptoms prompted him to seek medical attention at [facility]. ECG on presentation demonstrated sinus rhythm at 76 beats per minute with no acute abnormalities cons istent with acute infarction. There is evidence of premature atrial contractions, left axis deviatio n, and biphasic P waves in V1 consistent with left atrial enlargement, as well as early R-wave transi tion consistent with right ventricular hypertrophy. Initial troponin at [id number] was negative. First serum troponin was mildly elevated at 0.040. At the time of my exam, he is chest pain free. He denies any complaints of palpitations, dizziness, lightheadedness, near syncope, or syncope. He has no complaints of shortness of breath, dyspnea on e xertion, PND, orthopnea, or lower extremity edema. He had isolated episode of chest discomfort last night. No further episodes. Currently, at the time of my exam, he is resting comfortably without complaint. REVIEW OF SYSTEMS: 10 point review of systems is negative with the exception of chest pain as descri bed in his history of present illness. PAST MEDICAL HISTORY: 1. Severe aortic stenosis with mean gradient of 75 mmHg on echocardiogram from January 2018. 2. Hypertension. 3. Hyperlipidemia. 4. Diabetes. 5. Gout. 6. GERD. 7. Hyperparathyroidism. PAST SURGICAL HISTORY: Dental surgery in 2012, and 2013, with bone graft. MEDICATIONS ON ADMISSION: Include: 1. Metformin 500 mg p.o. b.i.d. 2. Losartan/hydrochlorothiazide 100/25 mg once daily. 3. Diltiazem extended release once daily. 4. Rosuvastatin 10 mg daily. 5. Aspirin 81 mg daily. 6. Allopurinol 300 mg daily. 7. Multivitamin daily. ALLERGIES: Include verapamil, Bystolic, and JORGE inhibitors. SOCIAL HISTORY: He is . He lives with his . He has a son who is 46, who was with him to day. His is lifelong nonsmoker. PHYSICAL EXAMINATION: VITAL SIGNS: Blood pressure 137/69, heart rate 69, sinus rhythm, respiratory rate of 18, oxygen saturation 93% on 2 L. GENERAL: He is awake, alert, oriented, appropriate in no apparent distress. NECK: There is no evidence of JVP or carotid bruits. LUNGS: Clear to auscultat ion bilaterally. CARDIAC: S1, S2. Regular rate and rhythm. There is a 3/6 systolic murmur at the right upper sternal border without radiation. ABDOMEN: Obese, soft, nontender. EXTREMITIES: He fox s no evidence of cyanosis, clubbing or edema. DATA: White blood cell count 8.93, hemoglobin of 17.1, hematocrit of 46.6, platelets 162. Sodium 13 6, potassium 3.6, chloride 106, bicarb 23, BUN 15, creatinine 1, glucose 119. N terminal proBNP 2010 . Serum troponin 0.040. Echocardiogram from February 02, 2018: Normal left ventricular cavity size, moderate LVH, EF 71%. Rig ht atrial dimensions normal. Normal mitral valve. No tricuspid regurgitation. Aortic valve is sherri rely calcified with severe aortic stenosis with mean gradient of 75 mmHg. Left heart catheterization performed today demonstrates 50% to 60% mid LAD stenosis and luminal irreg ularities within the circumflex and ramus branch, dominant right with no evidence of coronary disease . IMPRESSION: 1. Severe aortic stenosis. 2. New onset of symptomatic severe aortic stenosis. 3. Mildly elevated troponin. 4. Hypertension. 5. Hyperlipidemia. 6. Diabetes. 7. History of acute right parietal cryptogenic cerebrovascular accident. 8. [employer] implantable loop recorder in place. No evidence of atrial fibrillation. [facility] Symptoms associated with isolated premature ventricular contractions. RECOMMENDATIONS: 1. Recommend surgical aortic valve replacement. I do not think he is a candidate for transaortic va lve replacement at the age of 67 with an acceptable surgical risk. 2. Recommend single bypass with LUJAN to LAD in the setting of 50% to 60% mid LAD stenosis. 3. I reviewed his case with Dr. Guzman who had seen him in consultation in February 2018. We will p devorah for surgical aortic valve replacement tomorrow, May 29, 2018. 4. I have reviewed left heart catheterization results, as well as echo results with family. I have discussed that I felt that he was best treated with surgery. He is agreeable to pursue. PLAN: 1. N.p.o. after midnight. 2. Discontinue Lovenox. 3. Continue current medications with the exception of Lovenox. /[id number]/MODL
[2018-05-28] MEDS ORDERED: CHLORHEXIDINE GLUC HIBICLENS 118 ML BTL TP SCH (21:00)
[2018-05-28] MEDS: ROSUVASTATIN CALCIUM 10 MG TAB PO SCH (21:30)
--- NOTE | 2018-05-29 00:01 | SOAPPROG ---
KADE[facility] Progress Note Assessment/Plan: Assessment: Plan: 05/28/18 23:59 pt known to me, sched elective AVR admit notes/cath reviewed will proceed with earlier AVR/CABG this admit risks per consent reviewed pt and spouse, agree and accept those risks Objective: Vital Signs Temp Pulse Resp BP Pulse Ox 37.0 C 67 16 115/65 93 05/28/18 19:39 05/28/18 19:39 05/28/18 19:39 05/28/18 19:39 05/28/18 19:39 05/27/18 05/28/18 05/29/18 05:59 05:59 05:59 Intake Total 400 Balance 400 ICD10 Worksheet Patient Problems: Problems Problem Status Onset Aortic stenosis, severe Acute Chest pain Acute Stroke Acute Urinary incontinence Acute
[2018-05-29] MEDS ORDERED: CARDIOPLEGIC SOLUTION 1,052.8 ML PF ONE (06:00)
[2018-05-29] MEDS ORDERED: CITRATE DEXTROSE SOLN 500 ML BAG MISC ONE (06:00)
[2018-05-29] MEDS ORDERED: PHENYLEPHRINE HCL 50 MG in NS 250 ML IV ONE (06:00)
[2018-05-29] MEDS ORDERED: MUPIROCIN 2% 22 GM OINT NS ONE (06:00)
[2018-05-29] MEDS ORDERED: AMINOCAPROIC ACID 5 GM/20 ML VIAL IV ONE (06:00)
[2018-05-29] MEDS ORDERED: niCARdipine/NACL 200 ML IV ONE (06:00)
[2018-05-29] MEDS ORDERED: ceFAZolin 2 GM/DEXTROSE 100 ML IV ONE (06:00)
[2018-05-29] MEDS ORDERED: INSULIN REGULAR HUMAN 100 UNIT in NS 100 ML IV ONE (06:00)
[2018-05-29] MEDS ORDERED: NOREPINEPHRINE BITARTRATE 16 MG in NS 250 ML IV ONE (06:00)
[2018-05-29] MEDS ORDERED: MANNITOL 25% 12.5 GM/50 ML VIAL IVP ONE (06:00)
[2018-05-29] MEDS ORDERED: PROTAMINE SULFATE 50 MG/5 ML VIAL IVP ONE (06:28)
[2018-05-29] MEDS ORDERED: MILRINONE/DEXTROSE/100 ML BAG IV ONE (06:28)
[2018-05-29] MEDS ORDERED: CALCIUM CHLORIDE 1 GM/10 ML INJ ONE ×2 (06:28→06:30)
[2018-05-29] MEDS ORDERED: AMINOCAPROIC ACID 5 GM/20 ML VIAL ONE ×2 (06:28→06:30)
[2018-05-29] MEDS ORDERED: niCARdipine/NACL/200 ML BAG IV ONE (06:29)
[2018-05-29] MEDS ORDERED: DOPamine/DEXTROSE 400 MG/250 ML BAG IV ONE (06:29)
[2018-05-29] MEDS ORDERED: NA BICARBONATE 50 MEQ/50 ML VIAL ONE (06:29)
[2018-05-29] MEDS ORDERED: AMIODARONE HCL 150 MG/3 ML VIAL ONE ×2 (06:29→06:31)
[2018-05-29] MEDS ORDERED: ADENOSINE 6 MG/2 ML VIAL ONE (06:29)
[2018-05-29] MEDS ORDERED: HEPARIN 10,000 UNIT/10 ML MDV (1,000 UNIT/ML) ONE ×2 (06:29→06:31)
[2018-05-29] MEDS ORDERED: ceFAZolin 1 GM VIAL ONE (06:30)
[2018-05-29] MEDS ORDERED: SODIUM BICARBONATE 50 MEQ/50 ML SYR ONE (06:30)
[2018-05-29] MEDS ORDERED: NITROGLYCERIN/D5W 50 MG/250 ML BOTTLE IV ONE (06:30)
[2018-05-29] MEDS ORDERED: ALBUMIN 5% 250 ML BOTTLE IV ONE ×3 (06:30→18:15)
[2018-05-29] MEDS ORDERED: MAGNESIUM SULFATE 1 GM/2 ML VIAL ONE (06:31)
[2018-05-29] MEDS ORDERED: methylPREDNISolone SOD SUCC 1 GM/8 ML VIAL ONE (06:31)
[2018-05-29] MEDS ORDERED: CITRATE DEXTROSE SOLN 500 ML BAG ONE (06:31)
[2018-05-29] MEDS ORDERED: LIDOCAINE 2% 100 MG/5 ML SYR ONE (06:31)
[2018-05-29] MEDS ORDERED: MINERAL OIL 10 ML VIAL ONE (06:47)
[2018-05-29] MEDS ORDERED: PAPAVERINE HCL 60 MG/2 ML SDV ONE (06:47)
[2018-05-29] MEDS ORDERED: VERAPAMIL 5 MG/2 ML VIAL ONE (06:47)
[2018-05-29] MEDS ORDERED: LR 1,000 ML IV ONE (06:53)
--- NOTE | 2018-05-29 06:57 | PDGENHP ---
History and Physical - Chief Complaint CP with known - History of Present Illness 67M seen 02/21/18 for evaluation of severe (mean gradient 75, ANGÉLICA 0.7) with elective AVR planned for early 2018 evaluated at [facility] ED 05/28 for c/o severe CP and admitted for further w/u. Pt is s/p [facility] which showed a LAD lesion in need of bypass. Plan is to proceed with AVR/CABG today. Pt has pmhx significant for right parietal cryptogenic CVA, HTN, DM 2, HLD, and umbilical hernia. He is s/p parathyroidectomy. He denies ETOH or tobacco abuse. Pt is currently comfortable without complaints. He denies CP since admission. He further denies weakness, dizziness, pre-syncope, syncope, palpitations, SOB, orthopnea, PND, abdominal pain/fullness, or LE edema. History Information - Allergies/Home Medication List Allergies/Adverse Reactions: niacin [From Niaspan Extended-Release] Allergy (Mild, Verified 05/28/18 03:35) [place] Home Medications: Allopurinol [Allopurinol 300 MG (RX)] 300 mg PO DAILY 10/16/14 [Last Taken 05/27] Aspirin [Aspirin 81mg (*)] 81 mg PO DAILY 10/16/14 [Last Taken 05/27/18] Diltiazem Cd [Cardizem ER Q24hr] 180 mg PO DAILY 10/16/14 [Last Taken 05/27/18] Diltiazem HCl [Diltiazem 24Hr ER] 240 mg PO DAILY 10/16/14 [Last Taken 05/27/18] Herbals/Supplements -Info Only 1 ea PO DAILY 10/16/14 [Last Taken 02/01/18] Loratadine [Claritin] 10 mg PO DAILY PRN 10/16/14 [Last Taken 02/06/18 08:43] Losartan/Hydrochlorothiazide [Losartan-Hctz 100-25 mg Tab] 1 each PO DAILY 10/16 [Last Taken 05/27/18] Multivitamins [Multivitamin (*)] 1 each PO DAILY 10/16/14 [Last Taken 05/27/18] metFORMIN HCL [Glucophage 500 mg (*)] 500 mg PO BIDMEAL 10/16/14 [Last Taken ] Rosuvastatin Calcium [Rosuvastatin Calcium] 10 mg PO HS 05/28/18 [Last Taken ] I have personally reviewed and updated: medical history, social history, surgical history - Past Medical History CVA (new diagnosis), diabetes type 2, hypertension, hyperlipidemia - Surgical History Additional surgical history: parathyroidectomy - Family History Positive for: stroke - Social History Smoking Status: Never smoked Alcohol Use: None Drug Use: None Review of Systems Review of Systems: ROS: 10pt was reviewed & negative except for what was stated in HPI & below Physical Exam Physical Exam: Temp Pulse Resp BP Pulse Ox 36.5 C 85 18 144/88 H 95 05/29/18 06:43 05/29/18 06:43 05/29/18 06:43 05/29/18 06:43 05/29/18 06:43 O2 (L/minute) 2 Constitutional: no apparent distress, appears nourished, not in pain Eyes: anicteric sclera Ears, Nose, Mouth, Throat: moist mucous membranes, hearing normal Cardiovascular: regular rate and rhythym, systolic murmur Respiratory: no respiratory distress, no rales or rhonchi, clear to auscultation Gastrointestinal: other (NT umbilcial hernia) Skin: warm, normal color, no rashes or abrasions, no fluctuance, no induration, No mottled Musculoskeletal: other (mild left-sided weakness ) Neurologic: AAOx3, sensation intact bilaterally Psychiatric: interacting appropriately, not anxious, not encephalopathic, thought process linear Lab Data & Imaging Review 05/29/18 03:10 05/29/18 03:10 WBC 8.15 10^3/uL (3.80-9.50) 05/29/18 03:10 RBC 5.57 10^6/uL (4.40-6.38) 05/29/18 03:10 Hgb 16.3 g/dL (13.7-17.5) 05/29/18 03:10 Hct 46.8 % (40.0-51.0) 05/29/18 03:10 MCV 84.0 fL (81.5-99.8) 05/29/18 03:10 MCH 29.3 pg (27.9-34.1) 05/29/18 03:10 MCHC 34.8 g/dL (32.4-36.7) 05/29/18 03:10 RDW 13.7 % (11.5-15.2) 05/29/18 03:10 Plt Count 150 10^3/uL (150-400) 05/29/18 03:10 MPV 11.7 fL (8.7-11.7) 05/28/18 06:00 Neut % (Auto) 69.5 % (39.3-74.2) 05/28/18 06:00 Lymph % (Auto) 16.8 % (15.0-45.0) 05/28/18 06:00 [place] % (Auto) 11.0 % (4.5-13.0) 05/28/18 06:00 Eos % (Auto) 1.8 % (0.6-7.6) 05/28/18 06:00 Baso % (Auto) 0.7 % (0.3-1.7) 05/28/18 06:00 Nucleat RBC Rel Count 0.0 % (0.0-0.2) 05/28/18 06:00 Absolute Neuts (auto) 6.21 10^3/uL (1.70-6.50) 05/28/18 06:00 Absolute Lymphs (auto) 1.50 10^3/uL (1.00-3.00) 05/28/18 06:00 Absolute Monos (auto) 0.98 10^3/uL (0.30-0.80) H 05/28/18 06:00 Absolute Eos (auto) 0.16 10^3/uL (0.03-0.40) 05/28/18 06:00 Absolute Basos (auto) 0.06 10^3/uL (0.02-0.10) 05/28/18 06:00 Absolute Nucleated RBC 0.00 10^3/uL (0-0.01) 05/28/18 06:00 Immature Gran % 0.2 % (0.0-1.1) 05/28/18 06:00 Immature Gran # 0.02 10^3/uL (0.00-0.10) 05/28/18 06:00 Sodium 138 mEq/L (135-145) 05/29/18 03:10 Potassium 4.0 mEq/L (3.5-5.2) 05/29/18 03:10 Chloride 108 mEq/L (97-110) 05/29/18 03:10 Carbon Dioxide 21 mEq/l (22-31) L 05/29/18 03:10 Anion Gap 9 mEq/L (6-14) 05/29/18 03:10 BUN 17 mg/dL (7-23) 05/29/18 03:10 Creatinine 1.1 mg/dL (0.7-1.3) 05/29/18 03:10 Estimated GFR > 60 05/29/18 03:10 Glucose 91 mg/dL (70-100) 05/29/18 03:10 POC Glucose 110 mg/dL (70-100) H 05/28/18 20:58 Calcium 9.5 mg/dL (8.5-10.4) 05/29/18 03:10 Phosphorus 4.3 mg/dL (2.5-4.5) 05/28/18 06:00 Magnesium 1.8 mg/dL (1.6-2.3) 05/28/18 06:00 POC Troponin I 0.02 ng/mL (0.00-0.08) 05/28/18 01:20 Troponin I 0.040 ng/mL (0.000-0.034) H 05/28/18 06:00 NT-Pro-B Natriuret Pep 2010 pg/mL (0-125) H 05/27/18 23:10 Specimen Hemolysis 103 05/27/18 23:10 Patient ABO/Rh O NEGATIVE 05/28/18 15:23 Antibody Screen NEGATIVE 05/28/18 15:23 Visualized and Interpreted Chest x-ray results: Yes Chest X-Ray results: no infiltrate Visualized and Interpreted EKG results: Yes EKG Interpretation: Positive for: normal sinsus rhythm Assessment & Plan Plan: CAD - CABG Severe - AVR
[2018-05-29] MEDS ORDERED: MIDAZOLAM 2 MG/2 ML VIAL IVP ONE (07:21)
--- NOTE | 2018-05-29 07:21 | PDANEPAE ---
ANE History of Present Illness here for CABG/AVR ANE Past Medical History - Cardiovascular History Hx Hypertension: Yes Hx Arrhythmias: No Hx Chest Pain: No Hx Coronary Artery / Peripheral Vascular Disease: No Hx CHF / Valvular Disease: No Hx Palpitations: No Cardiovascular History Comment: HIGH CHOL. MURMUR - Pulmonary History Hx COPD: No Hx Asthma/Reactive Airway Disease: No Hx Recent Upper Respiratory Infection: No Hx Oxygen in Use at Home: No Hx Sleep Apnea: No Sleep Apnea Screening Result - Last Documented: Positive Pulmonary History Comment: 1 MO AGO COUGH, RESOLVED. DENIES SOB W STAIRS - Neurologic History Hx Cerebrovascular Accident: No Hx Seizures: No Hx Dementia: No - Endocrine History Hx Diabetes: Yes Endocrine History Comment: DM 2. A1C NORMAL LAST AT 7 [facility]. HYPERPARATHYROID - Renal History Hx Renal Disorders: Yes Renal History Comment: HX KIDNEY STONES - Liver History Hx Hepatic Disorders: No - Neurological & Psychiatric Hx Hx Neurological and Psychiatric Disorders: No - Cancer History Hx Cancer: No - Congenital Disorder History Hx Congenital Disorders: No - GI History Hx Gastrointestinal Disorders: Yes Gastrointestinal History Comment: POLYPS. INTERNAL HEMORRHOIDS - Other Health History Other Health History: GOUT. PARTIAL DENTURE REM - Chronic Pain History Chronic Pain: No - Surgical History Prior Surgeries: COLONOSCOPY. WISDOM TEETH. JAW SX W BONE GRAAFT. L LITTLE FINGER SX. TONSILS ANE Review of Systems Review of systems is: negative Review of Systems: - Exercise capacity Exercise capacity: <4 METS ANE Patient History - Allergies Allergies/Adverse Reactions: niacin [From Niaspan Extended-Release] Allergy (Mild, Verified 05/28/18 03:35) [place] - Home Medications Home Medications: Allopurinol [Allopurinol 300 MG (RX)] 300 mg PO DAILY 10/16/14 [Last Taken 05/27] Aspirin [Aspirin 81mg (*)] 81 mg PO DAILY 10/16/14 [Last Taken 05/27/18] Diltiazem Cd [Cardizem ER Q24hr] 180 mg PO DAILY 10/16/14 [Last Taken 05/27/18] Diltiazem HCl [Diltiazem 24Hr ER] 240 mg PO DAILY 10/16/14 [Last Taken 05/27/18] Herbals/Supplements -Info Only 1 ea PO DAILY 10/16/14 [Last Taken 02/01/18] Loratadine [Claritin] 10 mg PO DAILY PRN 10/16/14 [Last Taken 02/06/18 08:43] Losartan/Hydrochlorothiazide [Losartan-Hctz 100-25 mg Tab] 1 each PO DAILY 10/16 [Last Taken 05/27/18] Multivitamins [Multivitamin (*)] 1 each PO DAILY 10/16/14 [Last Taken 05/27/18] metFORMIN HCL [Glucophage 500 mg (*)] 500 mg PO BIDMEAL 10/16/14 [Last Taken ] Rosuvastatin Calcium [Rosuvastatin Calcium] 10 mg PO HS 05/28/18 [Last Taken ] - NPO status NPO Status: no food or drink >8 hours NPO Since - Liquids (Date): 05/29/18 NPO Since - Liquids (Time): 00:01 NPO Since - Solids (Date): 05/29/18 NPO Since - Solids (Time): 00:01 - Smoking Hx Smoking Status: Never smoked - Alcohol Use Alcohol Use: None - Family Anes Hx Family Hx Anesthesia Complications: MOTHER SLOW TO AWAKEN ANE Labs/Vital Signs - Labs Result Diagrams: 05/29/18 03:10 05/29/18 03:10 - Vital Signs Vital Signs: reviewed preoperatively; see RN documention for details Blood Pressure: 144/88 Heart Rate: 85 Respiratory Rate: 18 O2 Sat (%): 95 Height: 190.5 cm Weight: 96.8 kg ANE Physical Exam - Airway Neck exam: FROM Mallampati Score: Class 1 - Pulmonary Pulmonary: no respiratory distress - Cardiovascular Cardiovascular: regular rate and rhythym - ASA Status ASA Status: IV ANE Anesthesia Plan Anesthesia Plan: general endotracheal anesthesia Lines/Monitors: arterial line, central line, MITA
[2018-05-29] MEDS ORDERED: PROPOFOL/EMULSION 500 MG/50 ML BOTTLE IV ONE (08:10)
[2018-05-29] MEDS ORDERED: fentaNYL 250 MCG/5 ML INJ ONE (08:10)
[2018-05-29] MEDS ORDERED: PHENYLEPHRINE HCL 100 MCG/ML SYR ONE (08:45)
[2018-05-29] MEDS ORDERED: ePHEDrine SULFATE 25 MG/5 ML SYR ONE (09:17)
[2018-05-29] MEDS ORDERED: ROCURONIUM 100 MG/10 ML VIAL ONE (09:17)
[2018-05-29] MEDS ORDERED: HYDROmorphONE/DILAUDID 2 MG/ML INJ ONE (11:05)
[2018-05-29] MEDS ORDERED: SODIUM CL NASAL 45 ML BTL EACHNARE PRN (12:48)
[2018-05-29] MEDS ORDERED: POTASSIUM Cl (KCl) 50 ML IV PRN (12:48)
[2018-05-29] MEDS ORDERED: ONDANSETRON 4 MG/2 ML VIAL IVP PRN (12:48)
[2018-05-29] MEDS ORDERED: ACETAMINOPHEN 325 MG TAB PO PRN (12:48)
[2018-05-29] MEDS ORDERED: MEPERIDINE 25 MG/0.5 ML AMP IVP PRN (12:48)
[2018-05-29] MEDS ORDERED: LACTULOSE 20 GM/30 ML UDCUP PO PRN (12:48)
[2018-05-29] MEDS ORDERED: METOCLOPRAMIDE 10 MG/2 ML VIAL IVP PRN (12:48)
[2018-05-29] MEDS ORDERED: ONDANSETRON DISINTEGRATING 4 MG TAB PO PRN (12:48)
[2018-05-29] MEDS ORDERED: MAGNESIUM HYDROXIDE 30 ML UDCUP PO PRN (12:48)
[2018-05-29] MEDS ORDERED: POLYETHYLENE GLYCOL 3350 17 GM PKT PO PRN (12:48)
[2018-05-29] MEDS ORDERED: BISACODYL 10 MG SUPP PR PRN (12:48)
[2018-05-29] MEDS ORDERED: KETOROLAC 15 MG/1 ML SDV IVP PRN (12:48)
[2018-05-29] MEDS ORDERED: ACETAMINOPHEN 650 MG SUPP PR PRN (12:48)
[2018-05-29] MEDS ORDERED: CEPACOL LOZENGE PO PRN (12:48)
[2018-05-29] MEDS ORDERED: PANTOPRAZOLE SODIUM 40 MG VIAL IVP ONE (12:48)
[2018-05-29] MEDS ORDERED: D50W 25 GM/50 ML SYR IVP PRN (12:48)
--- NOTE | 2018-05-29 12:56 | ASDISCHSUM ---
Discharge Information Plan Status:Home with No Needs Medically Cleared to Leave: Discharge Date: D/C Disposition:Home, Routine, Self-Care ADT D/C Disposition: Projected Discharge Date: Transportation at D/C:Family Discharge Delay Reason: Follow-Up Date: Discharge Slot: Final Diagnosis: Placement Information Patient Contact Information Contact Name:SILVIA Relationship: Address:[address] City:[place] Alternate Phone: [facility] Code:[place] [address] Email: Financial Information Financial Class:Medicare Primary Plan Desc:MEDICARE INPATIENT Primary Plan Number:[id number] Secondary Plan Desc:AARP/MDR SUPPLEMENT Secondary Plan Number:[id number] Assessment Information LACE LACE Length of stay for Answers: 1 day current admission Acuity / Level of Answers: Yes Care: Did the patient have an inpatient admission? Comorbidities - select Answers: Coronary Artery Disease all that apply Diabetes (uncontrolled or controlled) Other Notes: HTN # of Emergency department Answers: 1-2 visits in the last 6 months Score: 9 Date Signed: 05/29/2018 12:55 PM Electronically Signed By:Stefani Craig Intervention Information
[2018-05-29] MEDS ORDERED: NS 1,000 ML IV SCH (13:00)
[2018-05-29] MEDS ORDERED: INSULIN REGULAR HUMAN 100 UNIT in NS 100 ML IV SCH (13:00)
[2018-05-29] MEDS ORDERED: niCARdipine/NACL 200 ML IV SCH (13:00)
--- NOTE | 2018-05-29 13:57 | GOP ---
DATE OF OPERATION: 05/29/2018 SURGEON: Teofilo Guzman DO OBSTETRICS TEACHER: Maxx. ANESTHESIA: Arnold. PREOPERATIVE DIAGNOSIS: 1. Embolic stroke from critical aortic stenosis with heavy calcification. 2. Non-Q-wave infarction on admission with evidence of moderate left anterior descending disease. 3. Hypertensive cardiovascular disease. POSTOPERATIVE DIAGNOSIS: 1. Embolic stroke from critical aortic stenosis with heavy calcification. 2. Non-Q-wave infarction on admission with evidence of moderate left anterior descending disease. 3. Hypertensive cardiovascular disease. PROCEDURE PERFORMED: 1. Aortic valve replacement with a #23 Inspiris aortic valve as a Manougian procedure with bovine pe ricardial patch enlargement of the anterior leaf of the mitral valve, the aortic valve anulus, and th e aortic root to facilitate a larger valve placement. 2. Attempted bypass of the left anterior descending with the left internal mammary artery; however, unable to safely identify it. 3. Ligate left atrial appendage with a 35 mm atrial clip. FINDINGS: Patient presented with chest pain, had mild troponin elevation. He was known to me from [facility] elective evaluation for scheduled aortic valve replacement for critical aortic stenosis. He underwent diagnostic left heart catheterization prior to surgery. Was noted to have a 40% to 50% LAD lesion. DESCRIPTION OF PROCEDURE: He was consented for surgery, brought to the operating room, intubated. M onitoring lines were placed. He was prepped and draped in sterile classical manner. Sternotomy was performed. Left internal mammary was harvested. It was a good quality vessel measuring 2.2 mm in di ameter with brisk flow. He was heparinized, cannulated in the ascending aorta and right atrium. It should be noted his aorta was quite small given the size of this gentleman and the size of his heart and severe left ventricular hypertrophy. Cardiopulmonary bypass was begun. Cardioplegic arrest was obtained. Initially was retrograde cardioplegia because of significant aortic insufficiency followed by topical hypothermia, systemic cooling, and direct antegrade cardioplegia. We then placed a 35 mm atrial clip across the base of the left atrial appendage because of his previous stroke history. I then performed aortotomy, extending it down to the noncoronary sinus. He had a heavily calcified jasper arent trileaflet valve with marked loose calcium and heavy calcification in the aortic root and proxi mal ascending aorta. The aortic root was endarterectomized leaving several millimeters of tissue pati und the coronary ostia to avoid any disruption of coronary flow. This required quite extensive endar terectomy to removed the stalactite type plaques emanating from the root and proximal ascending aorta up to the sinotubular junction. I then excised the heavily calcified, very friable, loosely adheren t, calcium encrusted aortic valve. Debrided the anulus, irrigated the LV chamber, infused CO2. Plac ing a Sizer in, I could not get a 23 mm Sizer through the sinotubular junction at least to evaluate t he aortic valve. I then decided that I needed to do a total root or enlarge the outflow tract. Lety use these tissues were quite friable, very thin-walled, and of poor quality, particularly in his aort a and the sinuses, I was concerned about bleeding problems with a total root. For that reason, I fas hioned the elliptical piece of bovine pericardium, excised down through the non coronary cusp anulus onto the mitral leaflet, and with pledgeted mattress sutures, did a continuous running patch enlargem ent of the outflow tract extending onto the aorta, taking all tension off the aorta and enlarging the sinotubular junction. I then was able to place a 23 mm Inspiris valve in a supra-annular position with interrupted 2-0 Tycron pledgeted mattress sutures. Copious irrigation was performed. The patch was incorporated into the closure of the aorta, enlarging the root and sinotubular junction to avoid any problems with valve function. This was reinforced with BioGlue. I then explored the anterior w all for the LAD. This patient had a marked amount of fat on the anterior pericardium at least an inc h in depth down to the where the LAD would have been and I dissected quite deep into the intermuscula r septum trying to identify the coronary artery. I decided to abandon that because of its significan t bleeding from venous and small arterial branches in the fat and the fact that it was a single easil y stentable 50% lesion in the upper third of the LAD. I decided to abandon attempting grafting and a void problems with entering the right ventricle or any other kind of VSD creation. I then closed the epicardial fat with continuous running 4-0 Prolene suture to control bleeding, transected the mammar y, removed the cross-clamp with suction on the ascending aortic vent and LV sump. I went back on byp ass 1 time just to repair additional fatty bleeding on the anterior wall since the epicardial surface was so friable and it was not good at holding sutures. When I was satisfied this was controlled, we again weaned from bypass, reversed the heparin with protamine. Echo revealed good left ventricular function with significantly thickened left ventricle. The aortic valve functioned perfectly without perivalvular leak. All cannulas were removed and oversewn. Two ventricular pacing wires, 1 left ple ural and 1 mediastinal drain were placed. The thymic fat and pericardium were closed as best I could over the anterior wall. The chest was closed in standard fashion. Patient was returned to ICU in s table condition. /[id number]/MODL
[2018-05-29] MEDS: ceFAZolin 2 GM/DEXTROSE 100 ML IV SCH ×2 (14:02→21:14)
[2018-05-29] MEDS: ALBUMIN 5% 250 ML IV PRN ×2 (14:30→17:00)
[2018-05-29] MEDS ORDERED: PANTOPRAZOLE SODIUM 40 MG VIAL ONE (15:33)
--- NOTE | 2018-05-29 15:34 | PDCONSULT ---
Batch Operator Note: ASSESSMENT 67 yo M with severe , CAD, prior CAD admitted with chest pain and is now s/p AVR with AVI closure and attempted CAGB post op day # 0 # , severe, s/p AVR # CAD, 50% stenosis of LAD # post op resp failure, expected # CVA # DM # HTN # obesity # Afib PLAN # wean to extubate # ASA 81 when tolerating p.o. # holding rate control and oral antihypertensives until extubated clinically improved # will likely need CPAP while inpatient # Feeding - NPO # Analgesia APAP, fentanyl # Sedation wean to extubate # Thromboprophylaxis - SQ hep # Head of bed elevated # Ulcer prophylaxis - PPI # Glucose insulin drip plus SSI # Skin no skin breakdown # Delirium - delirium precautions CONSULT I was asked by Dr. Teofilo Guzman of cardiothoracic surgery to evaluate this patient for postoperative ICU care EVENTS 05/29/2018-open AVR, LA a occlusion and attempted CABG 05/28/2018-coronary [id number] disease, LAD, 50-60% stenosis IMAGING Personally reviewed interpreted patient's radiographic imaging 05/29/2018-postop chest x-ray-ET tube and support devices in appropriate position. Postop parenchymal changes as expected Chief complaint Chest pain HPI 67-year-old male with severe aortic stenosis, prior CVA, diabetes and coronary disease admitted from the ED for chest pain. He was rule out for acute ACS. He has known severe aortic stenosis and was scheduled for a surgical aortic valve replacement. He also had a link recorder placed in January to rule out occult atrial fibrillation for his cryptogenic CVA. This was negative. Time of admission he denied fevers chills nausea vomiting shortness of breath syncope. He had a parathyroidectomy but no other recent surgeries. Denied tobacco or alcohol. Time of interview he is intubated sedated and unable to provide meaningful history. Allergies Niacin Medications Crestor, allopurinol, diltiazem, aspirin 81, Crestor 10, hydrochlorothiazide/ losartan, multivitamin Past medical and surgical history Type 2 diabetes, obesity, GERD, gout, aortic stenosis, coronary disease Family history Diabetes Social history Nonsmoker nondrinker lives with in [place] Review of systems Unable to be obtained secondary to being intubated and sedated Physical exam Vitals afebrile, pulse 74 sinus rhythm, blood pressure 106/55 map 72, respiratory rate 14 95% on the ventilator EN: Intubated and sedated lying in bed NEURO: Sedated, no focal deficits HEENT: PERRL, EOMI, MMM, ET tube in place NECK: supple, trachea midline CHEST surgical incision site clean dry and intact CVS: Pericardial rub no m/r/g PULM: CTA B, no wheezes/rales/rhonchi ABD: soft, NT, ND, NABS EXT: Trace edema, no cyanosis, full ROM SKIN: warm, dry, intact, no rash PSYCH CAM negative, appropriate affect Data Imaging as above Labs reviewed
--- NOTE | 2018-05-29 16:29 | POSTANESTH ---
Post Anesthetic Evaluation Cardiovascular Status: Normal, Stable Respiratory Status: Normal, Stable Level of Consciousness/Mental Status: Mildly Sleepy, Arousable Pain Control: Adequate, Prn Tx Ordered Nausea/Vomiting Control: Adequate, Prn Tx Ordered Complications Possibly Related to Anesthesia: None Noted
[2018-05-29] MEDS: ALLOPURINOL 300 MG TAB PO SCH (17:05)
[2018-05-29] MEDS: ASPIRIN 81 MG CHEWABLE TAB PO SCH (17:05)
--- NOTE | 2018-05-29 18:08 | HOSPPROG ---
Hospitalist Progress Note Assessment/Plan: 67 yo M w/ hx of severe , CVA, DM, and HTN presents after episode of chest pain. Plan: Chest pain -patient is status post AVR, attempted CABG but unable to locate LAD. Severe sp AVR - AV area 0.7 and mean gradient of 75 mm Hg. Today is status post AVR, tolerated surgery well. extubated and with manageable pain. -management per CV surgery -pain management -DVT prophy, asa -prophy abx CVA - MCA stroke in January of this year, still with mild L sided weakness but doing quite well from this standpoint. LINQ monitor in place has not detected AF to date. - Continue home medications HTN - On nicardipine gtt. Afib- on nothing currently for rate control until clinically improved. restart as pressures rise and as needed. NIDDM - On metformin only as outpatient, normoglycemic on admission. off metformin and currently on insulin gtt. Diet -NPO after surgeyr Code - Full Ppx - LMWH, asa Dispo - Pending clinical course Subjective: patient still sedated from surgery. When asked if he has any pain he answers not now Objective: Vital Signs Temp Pulse Resp BP Pulse Ox 36.2 C 85 14 97/50 L 95 05/29/18 17:00 05/29/18 17:00 05/29/18 17:00 05/29/18 17:00 05/29/18 17:00 Laboratory Results 05/29/18 03:10 05/29/18 03:10 05/28/18 05/29/18 05/30/18 05:59 05:59 05:59 Intake Total 550 250 Output Total 525 Balance 550 -275 - Physical Exam Constitutional: no apparent distress, appears nourished, not in pain Eyes: PERRL, anicteric sclera, EOMI Ears, Nose, Mouth, Throat: moist mucous membranes, hearing normal, ears appear normal, no oral mucosal ulcers Cardiovascular: regular rate and rhythym, no murmur, rub, or gallop, other ( sternotomy scar noted. ) Respiratory: no respiratory distress, no rales or rhonchi, clear to auscultation , reduced air movement Gastrointestinal: normoactive bowel sounds, soft, non-tender abdomen, no palpable masses Genitourinary: no bladder fullness, no bladder tenderness, no renal bruits Skin: no rashes or abrasions, no fluctuance, no induration Musculoskeletal: full muscle strength, no muscle tenderness, normal joint ROM Neurologic: AAOx3, sensation intact bilaterally Psychiatric: interacting appropriately, not anxious, not encephalopathic, thought process linear Lymph, Heme, Immunologic: no cervical LAD, no supraclavicular LAD ICD10 Worksheet Patient Problems: Problems Problem Status Onset Aortic stenosis, severe Acute Chest pain Acute Stroke Acute Urinary incontinence Acute
[2018-05-29] MEDS ORDERED: ALBUMIN 5% 250 ML IV ONE (19:00)
[2018-05-29] MEDS: fentaNYL 100 MCG/2 ML INJ IVP PRN (19:28)
[2018-05-29] MEDS: MUPIROCIN 2% 22 GM OINT NS SCH (20:30)
[2018-05-29] MEDS: SENNOSIDES/DOCUSATE SODIUM TAB PO SCH (20:32)
[2018-05-29] MEDS: HYDROCODONE/APAP 5/325 TAB PO PRN (22:10)
[2018-05-30] MEDS: HYDROCODONE/APAP 5/325 TAB PO PRN ×4 (02:57→15:11)
[2018-05-30 04:25] LABS: PLATELET COUNT 99 10^3/uL (150-400)
[2018-05-30] MEDS: ceFAZolin 2 GM/DEXTROSE 100 ML IV SCH ×3 (05:43→20:38)
[2018-05-30] MEDS: HEPARIN 5,000 UNIT/0.5 ML INJ SC SCH ×3 (05:58→20:38)
[2018-05-30] MEDS: fentaNYL 100 MCG/2 ML INJ IVP PRN (07:24)
--- NOTE | 2018-05-30 07:28 | SOAPPROG ---
SOHONG Progress Note Assessment/Plan: POD #1: AVR with #23 Resilia Inspiris Dunham bioprosthesis valve with bovine pericardial patch enlargement of anterior leaflet of MV, aortic valve anulus, and aortic root, attempted bypass of LAD with LUJAN, AtriClip exclusion of AVI Critical symptomatic aortic stenosis with severe LVH s/p AVR - ASA for thromboprophylaxis. BB when appropriate. Moderate LAD CAD with inability to bypass - possible stenting as per cardiology. Continue ASA/BB/statin when appropriate. Acute post-op blood loss anemia - stable without the need for transfusions. h/o embolic right parietal CVA with mild pre-op left-sided weakness - no post- op neuro deficits. Speech evaluation this AM to safely advance diet. Will keep pt in ICU overnight for close monitoring. DVT prophylaxis - SCDs/hepari SQ. Subjective: Pt has no complaints. No issues moving UE/LE. Pain well-controlled. Denies SOB. Objective: Vital Signs Temp Pulse Resp BP Pulse Ox 36.8 C 80 16 99/56 L 94 05/30/18 04:00 05/30/18 06:00 05/30/18 06:00 05/30/18 06:00 05/30/18 06:00 Laboratory Results 05/30/18 04:15 05/30/18 04:15 05/29/18 05/30/18 05/31/18 05:59 05:59 05:59 Intake Total 550 1893 Output Total 2266 Balance 550 -162 Physical Exam - Physical Exam General Appearance: WD/WN, alert, no apparent distress EENT: No scleral icterus (R), No scleral icterus (L) Neck: normal inspection Cardiac/Chest: regular rate, rhythm Abdomen: non-tender, soft, No distended Skin: normal color, warm/dry Extremities: No pedal edema Neuro/Psych: no motor/sensory deficits, alert, normal mood/affect, oriented x 3 , No aphasia, No cognition abnormalities, No speech abnormalities ICD10 Worksheet Patient Problems: Problems Problem Status Onset Aortic stenosis, severe Acute Chest pain Acute Stroke Acute Urinary incontinence Acute
[2018-05-30] MEDS: ASPIRIN 81 MG CHEWABLE TAB PO SCH ×2 (08:12→10:23)
[2018-05-30] MEDS: SENNOSIDES/DOCUSATE SODIUM TAB PO SCH ×3 (08:13→20:38)
[2018-05-30] MEDS: PANTOPRAZOLE SODIUM 40 MG TAB PO SCH ×2 (08:13→10:20)
[2018-05-30] MEDS: MUPIROCIN 2% 22 GM OINT NS SCH ×2 (08:13→20:33)
--- NOTE | 2018-05-30 12:18 | PDINTPN ---
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 Assessment/Plan: ASSESSMENT 67 yo M with severe , CAD, prior CAD admitted with chest pain and is now s/p AVR with AVI closure and attempted CAGB post op day # 0 # , severe, s/p AVR # CAD, 50% stenosis of LAD # post op resp failure, expected # CVA # DM # HTN # HLD # obesity # Afib PLAN # wean to extubate # ASA 81 # restart OP rosuvastatin and Co Q10 # hold outpatient oral antihypertensives until blood pressure improves # will likely need CPAP while inpatient # Feeding - cardiac diet # Analgesia APAP, oxy # Sedation none # Thromboprophylaxis - SQ hep, warfarin started # Head of bed elevated # Ulcer prophylaxis - PPI # Glucose insulin drip plus SSI # Skin no skin breakdown # Delirium - delirium precautions # disposed-agree with transfer to PCU Objective: Vital Signs Temp Pulse Resp BP Pulse Ox 37.1 C 93 22 H 104/63 94 05/30/18 08:00 05/30/18 11:00 05/30/18 11:00 05/30/18 11:00 05/30/18 11:00 Laboratory Results 05/30/18 04:15 05/30/18 09:08 05/29/18 05/30/18 05/31/18 05:59 05:59 05:59 Intake Total 550 1893 196.6 Output Total 2055 205 Balance 550 -162 -8.4 Physical Exam - Physical Exam General Appearance: alert, no apparent distress EENT: PERRL/EOMI, normal ENT inspection Neck: non-tender, full range of motion Respiratory: chest non-tender, lungs clear Cardiac/Chest: normal peripheral pulses, regular rate, rhythm, edema, other ( Mediastinal drains in place) Abdomen: normal bowel sounds, non-tender Skin: normal color, warm/dry Extremities: normal range of motion, non-tender Neuro/Psych: no motor/sensory deficits, alert, normal mood/affect, oriented x 3 ICD10 Worksheet Patient Problems: Problems Problem Status Onset Acute blood loss anemia Acute Aortic stenosis, severe Acute CAD in [place] artery Acute Chest pain Acute S/P AVR Acute S/P left atrial appendage ligation Acute Stroke Acute Urinary incontinence Acute
--- NOTE | 2018-05-30 13:33 | HOSPPROG ---
Hospitalist Progress Note Assessment/Plan: 67 yo M w/ hx of severe , CVA, DM, and HTN presents after episode of chest pain. Plan: Chest pain -patient is status post AVR, attempted CABG but unable to locate LAD. Severe sp AVR - AV area 0.7 and mean gradient of 75 mm Hg. Today is status post AVR, tolerated surgery well. extubated and with manageable pain. -management per CV surgery -pain management -DVT prophy, asa, heparin -prophy abx SAMSON- mild bump in creatinine from admission 1.1 to 1.4 today, likely secondary to prerenal azotemia. Ensure well hydrated, no hypotension and repeat in am. CAD- with occlusion of LAD and inability to bypass, possible stent in future per cardiology. restart his beta taty, asa, statin when able. 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 LINQ monitor in place has not detected AF to date. - Continue home medications HTN - restart BB when able, off HTN meds currently and normotensive. Afib- on nothing currently for rate control until clinically improved. restart as pressures rise and as needed. NIDDM - On metformin only as outpatient, normoglycemic on admission. off metformin. was on insulin gtt but has been held. Would restart ssi and monitor. Diet -NPO after surgeyr Code - Full Ppx - asa, heparin Dispo - Pending clinical course Subjective: has a lot of pain with cough, or hiccups. Hurts to hug heart pillow. Objective: Vital Signs Temp Pulse Resp BP Pulse Ox 36.8 C 89 16 103/79 93 05/30/18 12:00 05/30/18 12:00 05/30/18 12:00 05/30/18 12:00 05/30/18 12:00 Laboratory Results 05/30/18 04:15 05/30/18 09:08 05/29/18 05/30/18 05/31/18 05:59 05:59 05:59 Intake Total 550 1893 196.6 Output Total 2054 205 Balance 550 -162 -8.4 - Physical Exam Constitutional: no apparent distress, appears nourished, not in pain Eyes: PERRL, anicteric sclera, EOMI Ears, Nose, Mouth, Throat: moist mucous membranes, hearing normal, ears appear normal, no oral mucosal ulcers Cardiovascular: regular rate and rhythym, no murmur, rub, or gallop, other ( sternotomy scar appears clean dry and with no erythema. ) Respiratory: no respiratory distress, no rales or rhonchi, clear to auscultation Gastrointestinal: normoactive bowel sounds, soft, non-tender abdomen, no palpable masses Genitourinary: no bladder fullness, no bladder tenderness, no renal bruits Skin: no rashes or abrasions, no fluctuance, no induration Musculoskeletal: full muscle strength, no muscle tenderness, normal joint ROM Neurologic: AAOx3, sensation intact bilaterally Psychiatric: interacting appropriately, not anxious, not encephalopathic, thought process linear Lymph, Heme, Immunologic: no cervical LAD, no supraclavicular LAD ICD10 Worksheet Patient Problems: Problems Problem Status Onset Acute blood loss anemia Acute Aortic stenosis, severe Acute CAD in [place] artery Acute Chest pain Acute S/P AVR Acute S/P left atrial appendage ligation Acute Stroke Acute Urinary incontinence Acute
--- NOTE | 2018-05-30 15:31 | ASMTCMCOM ---
CM Note CM Note Notes: 67yo male admitted for CP, Severe aortic stenosis, CAD, AV. He has a Hx of CVA, DM, HTN and Obesity. Patient had an AVR and attempted CABG but unable to locate the LAD. Therapies are recommending HC-PT/OT at this time. Patient lives with his in [place]. 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. CM to follow. Date Signed: 05/30/2018 03:30 PM Electronically Signed By:Ruma Fisher LCSW
[2018-05-30] MEDS: traMADol 50 MG TAB PO PRN (20:37)
[2018-05-30] MEDS: COENZYME Q10 100 MG PO SCH (23:33)
[2018-05-31] MEDS: ROSUVASTATIN CALCIUM 10 MG TAB PO SCH ×2 (00:12→21:54)
[2018-05-31] MEDS: METOPROLOL TARTRATE 25 MG TAB PO SCH ×2 (00:12→08:43)
[2018-05-31] MEDS: HEPARIN 5,000 UNIT/0.5 ML INJ SC SCH (05:24)
[2018-05-31] MEDS: traMADol 50 MG TAB PO PRN ×2 (05:26→14:23)
[2018-05-31 05:53] LABS: PLATELET COUNT 97 10^3/uL (150-400)
--- NOTE | 2018-05-31 07:46 | SOAPPROG ---
SOAP Progress Note Assessment/Plan: Assessment: POD#2 AVR#23 Inspiris Resilia bioprosthesis w bovine pericardial patch enlargement of LVOT, attempted bypass of LAD w LUJAN, AtriClip exclusion of AVI Sx critical aortic stenosis with severe LVH - s/p AVR with LVOT enlargement. Stable early postop course. Antithrombotic prophylaxis w baby ASA. AF prophylaxis and BP control with BB. Moderate LAD disease - Unsuccessful attempt to bypass. No postop evidence ischemia/RWMA. Surveillance per cards, ? future PCI. Secondary prevention with baby ASA, BB and statin. Acute expected blood loss anemia with thrombocytopenia - Stable. No transfusions needed. VTE prophylaxis with SCDs. Use of SQ hep pending platelet rebound. 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 No apparent post-op exacerbation of deficits. Clearance for orals and dietary advancement by ENERGY SCHEDULER. Skilled for SNF by PT and IPR by ENERGY SCHEDULER. h/o left shoulder biceps tendon tear - Receiving outpt PT. Care with sternal precautions. Plan: Cont dysphagia 3 diet. Cut Vwires. Remove mediastinal tube. Cont metoprolol 12.5 mg BID. Consider inc to 25 mg tonight. Gentle diuresis. Baseline postop echo tomorrow. Dispo - Likely SNF next 2-3 days. 05/31/18 07:47 Subjective: Doing ok. Improving comfort and stamina. Open to SNF if Dr Guzman believes in his best interest. Objective: Vital Signs Temp Pulse Resp BP Pulse Ox 36.6 C 98 16 127/85 H 91 L 05/31/18 04:00 05/31/18 04:00 05/31/18 04:00 05/31/18 04:00 05/31/18 04:00 Laboratory Results 05/31/18 05:45 05/31/18 05:45 05/30/18 05/31/18 06/01/18 05:59 05:59 05:59 Intake Total 1893 621.6 Output Total 2055 400 70 Balance -162 221.6 -70 Improved HR control on low dose metoprolol. Uptrending SBPs. Min suppl O2 req. Balanced I/Os. +5 kg overall. CXR -> no pulm vasc congestion, left basilar atelectasis. CTOP approaching removal criteria. Improving Cr. Platelets remain depressed. Physical Exam - Physical Exam General Appearance: alert, no apparent distress Respiratory: lungs clear (grossly), other (blakes x 2 to bulb suction, serosang drainage; ant med tube d/cd without incident.) Cardiac/Chest: regular rate, rhythm, other (Sternotomy CDI. Vwires clipped at skin.) Abdomen: non-tender, soft Skin: warm/dry Extremities: swelling (1+ gen) ICD10 Worksheet Patient Problems: Problems Problem Status Onset Acute blood loss anemia Acute Aortic stenosis, severe Acute CAD in [place] artery Acute Chest pain Acute S/P AVR Acute S/P left atrial appendage ligation Acute Stroke Acute Urinary incontinence Acute
[2018-05-31] MEDS: SENNOSIDES/DOCUSATE SODIUM TAB PO SCH ×4 (08:43→21:54)
[2018-05-31] MEDS: PANTOPRAZOLE SODIUM 40 MG TAB PO SCH (08:47)
[2018-05-31] MEDS: ASPIRIN 81 MG CHEWABLE TAB PO SCH (08:47)
[2018-05-31] MEDS: MUPIROCIN 2% 22 GM OINT NS SCH (08:48)
[2018-05-31] MEDS: ALLOPURINOL 300 MG TAB PO SCH (09:03)
[2018-05-31] MEDS ORDERED: FUROSEMIDE 20 MG/2 ML VIAL IVP ONE (12:00)
[2018-05-31] MEDS ORDERED: POTASSIUM CL 10 MEQ TAB PO ONE (12:00)
[2018-05-31] MEDS ORDERED: D50W 25 GM/50 ML SYR IVP PRN (12:16)
--- NOTE | 2018-05-31 15:46 | ASMTCMCOM ---
CM Note CM Note Notes: 05/31/3028 Case Management Note Discussed with Noreen Dyer, anticipating SNF rehab. Discussed with pt and . Both agreeable to SNF rehab referrals. Faxed referrals via [employer]. Veronica from [facility] visited with pt and accepted. Waiting to hear from other referrals. Left for inpatient rehab to review case. Case Management d/c poc: [facility] SN[facility] rehab. Case Management to follow. Date Signed: 05/31/2018 03:46 PM Electronically Signed By:Billie Andres RN
--- NOTE | 2018-05-31 16:50 | HOSPPROG ---
Hospitalist Progress Note Assessment/Plan: 67 yo M w/ hx of severe , CVA, DM, and HTN presents after episode of chest pain. Today is post op day 3 status post AVR Plan: Chest pain -patient is status post AVR, attempted CABG but unable to locate LAD. Severe sp AVR - AV area 0.7 and mean gradient of 75 mm Hg. -management per CV surgery -pain management -DVT prophy, asa, heparin -prophy abx SAMSON- mild bump in creatinine from admission 1.1 to 1.4, but today trending down to 1.2 likely secondary to prerenal azotemia. Ensure well hydrated, no hypotension and repeat in am. CAD- with occlusion of LAD and inability to bypass, possible stent in future per cardiology. restart his beta taty, asa, statin when able. 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 LINQ monitor in place has not detected AF to date. Continue home medications HTN - restart BB when able, off HTN meds currently and normotensive. Afib- on nothing currently for rate control until clinically improved. restart as pressures rise and as needed. NIDDM - On metformin, was on insulin gtt post operatively but then taken off as not taking good po. Today sugars starting to climb. Will add SSI. Diet -ADAT Code - Full Ppx - asa, heparin Dispo - Pending clinical course Subjective: still having soreness in chest. doing well otherwise Objective: Vital Signs Temp Pulse Resp BP Pulse Ox 36.8 C 95 17 124/70 H 94 05/31/18 15:29 05/31/18 15:29 05/31/18 15:29 05/31/18 15:29 05/31/18 15:29 Laboratory Results 05/31/18 05:45 05/31/18 05:45 05/30/18 05/31/18 06/01/18 05:59 05:59 05:59 Intake Total 1893 621.6 600 Output Total 5 400 170 Balance -162 221.6 430 - Physical Exam Constitutional: no apparent distress, appears nourished, not in pain Eyes: PERRL, anicteric sclera, EOMI Ears, Nose, Mouth, Throat: moist mucous membranes, hearing normal, ears appear normal, no oral mucosal ulcers Cardiovascular: regular rate and rhythym, no murmur, rub, or gallop, other ( sternotomy scar appears well healed and non erythematous) Respiratory: no respiratory distress, no rales or rhonchi, clear to auscultation Gastrointestinal: normoactive bowel sounds, soft, non-tender abdomen, no palpable masses Genitourinary: no bladder fullness, no bladder tenderness, no renal bruits Skin: no rashes or abrasions, no fluctuance, no induration Musculoskeletal: full muscle strength, no muscle tenderness, normal joint ROM Neurologic: AAOx3, sensation intact bilaterally Psychiatric: interacting appropriately, not anxious, not encephalopathic, thought process linear Lymph, Heme, Immunologic: no cervical LAD, no supraclavicular LAD ICD10 Worksheet Patient Problems: Problems Problem Status Onset Acute blood loss anemia Acute Aortic stenosis, severe Acute CAD in [place] artery Acute Chest pain Acute S/P AVR Acute S/P left atrial appendage ligation Acute Stroke Acute Urinary incontinence Acute
[2018-05-31] MEDS: INSULIN LISPRO 100 UNIT/ML SC SCH (18:49)
[2018-05-31] MEDS: COENZYME Q10 100 MG PO SCH (20:41)
[2018-05-31] MEDS ORDERED: METOPROLOL TARTRATE 25 MG TAB PO SCH (21:00)
[2018-06-01] MEDS: traMADol 50 MG TAB PO PRN (05:01)
--- NOTE | 2018-06-01 07:04 | SOAPPROG ---
SOHONG Progress Note Assessment/Plan: POD #3: AVR with #23 Resilia Inspiris [place]ham bioprosthesis valve with bovine pericardial patch enlargement of anterior leaflet of MV, aortic valve anulus, and aortic root, attempted bypass of LAD with LUJAN, AtriClip exclusion of AVI Critical symptomatic aortic stenosis with severe LVH s/p AVR - ASA for thromboprophylaxis. BB for secondary prevention. Moderate LAD CAD with inability to bypass - mgmt as per cardiology as an OP. Continue ASA/BB/statin for secondary prevention. Acute post-op blood loss anemia - stable without the need for transfusions. h/o embolic right parietal CVA with mild pre-op left-sided weakness - no post- op neuro deficits. 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 DM 2 - well-controlled as per 6.1% A1c. Restarting of Metformin as per hospitalist. DVT prophylaxis - SCDs/heparin SQ. Subjective: Denies pain/SOB. Okay with transfer to SNF when ready. Objective: Vital Signs Temp Pulse Resp BP Pulse Ox 37.2 C 91 20 151/93 H 95 06/01/18 04:00 06/01/18 04:00 06/01/18 04:00 06/01/18 04:00 06/01/18 04:00 Laboratory Results 06/01/18 04:30 06/01/18 04:30 05/31/18 06/01/18 06/02/18 05:59 05:59 05:59 Intake Total 621.6 840 Output Total 400 280 60 Balance 221.6 560 -60 Physical Exam - Physical Exam General Appearance: WD/WN, alert, no apparent distress EENT: No scleral icterus (R), No scleral icterus (L) Neck: normal inspection Respiratory: No respiratory distress Cardiac/Chest: regular rate, rhythm Abdomen: non-tender, soft, No distended Skin: normal color, warm/dry Extremities: No pedal edema Neuro/Psych: no motor/sensory deficits, alert, normal mood/affect, oriented x 3 ICD10 Worksheet Patient Problems: Problems Problem Status Onset Acute blood loss anemia Acute Aortic stenosis, severe Acute CAD in [place] artery Acute Chest pain Acute S/P AVR Acute S/P left atrial appendage ligation Acute Stroke Acute Urinary incontinence Acute
[2018-06-01] MEDS ORDERED: POTASSIUM CL 20 MEQ TAB PO ONE (07:41)
[2018-06-01] MEDS: ASPIRIN 81 MG CHEWABLE TAB PO SCH (08:59)
[2018-06-01] MEDS: METOPROLOL TARTRATE 50 MG TAB PO SCH ×2 (08:59→22:26)
[2018-06-01] MEDS: ALLOPURINOL 300 MG TAB PO SCH (08:59)
[2018-06-01] MEDS: SENNOSIDES/DOCUSATE SODIUM TAB PO SCH ×2 (09:00→22:26)
[2018-06-01] MEDS: PANTOPRAZOLE SODIUM 40 MG TAB PO SCH (09:00)
--- NOTE | 2018-06-01 09:32 | CPEKG ---
Test Reason : OPEN Blood Pressure : / mmHG Vent. Rate : 079 BPM Atrial Rate : 079 BPM P-R Int : 176 ms QRS Dur : 089 ms QT Int : 470 ms P-R-T Axes : 029 001 000 degrees QTc Int : 539 ms Sinus rhythm Probable left atrial enlargement Nonspecific repol abnormality, lateral leads Prolonged QT interval Confirmed by Jose Luis Milligan ([id number]) on 06/01/2018 9:32:19 AM Referred By: Confirmed By:Jose Luis Milligan
[2018-06-01] MEDS: INSULIN LISPRO 100 UNIT/ML SC SCH ×3 (10:29→18:24)
--- NOTE | 2018-06-01 14:36 | ECHO ---
[email or web address] [address] [address] Main: [phone] Fax: Transthoracic Echocardiogram Name: STORMY SHEPHERD MR#: [id number] Study Date: 06/01/2018 Study Time: 09:46 AM Date of : 1950 Age: 67 year(s) Height: 190.5 cm (75 in.) Weight: 101.61 kg (224 lb.) BSA: 2.3 m2 Gender: Male Examination: Echo Indication: with bovine patch enlargement of LVOT involving ant leaflet MV baseline post op echo s/p AVR #23CE Inspiris Resilia bioprosthesis Image Quality: Technically Difficult Contrast: Requested by: Noreen Dyer BP: 126 mmHg/86 mmHg Heart Rate: Rhythm: Indication: with bovine patch enlargement of LVOT involving ant leaflet MV baseline post op echo s/p AVR #23CE Inspiris Resilia bioprosthesis Procedure Staff Mangle Catcher: Kelly Marvin [facility] Reading Physician: Teofilo Angel MD Requesting Provider: Conclusions: Normal size left ventricle. Concentric LV hypertrophy. EF is 54 %. There is paradoxic septal motion suggestive of bundle branch block, paced cardiac rhythm, or prior cardiac surgery. Mild mitral valve regurgitation is present. The aortic valve is a bioprosthesis. Normal functioning aortic valve prosthesis. Trivial tricuspid valve regurgitation. Trivial pericardial effusion. The patient is status post TAVR yesterday. Prior studies in January 2018 and on 05/28/2018 demonstrated severe calcific aortic stenosis. (Report for 05/28 not yet finlaized.) Measurements: Chambers Valvular Assessment AV/MV Valvular Assessment TV/PV Normal Normal Normal Name Value Range Name Value Range Name Value Range Ao [place] (2D): 3.5 cm (1.4 cm-2.6 AV Vmax: 1.91 m/s (1 m/s-1.7 PV Vmax: 1.11 m/s (0.6 m/s-0.9 cm) m/s) m/s) IVSd (2D): 1.3 cm (0.6 cm-1.1 AV maxP mmHg ( - ) PV PGmax: 5 mmHg ( - ) cm) AV meanP mmHg ( - ) LVDd (2D): 5.1 cm (4.2 cm-5.9 ANGÉLICA (VTI): 1.3 cm ( - ) cm) MV E Vmax: 0.79 m/s ( - ) LVDs (2D): 3.5 cm (2.1 cm-4 MV A Vmax: 1.11 m/s ( - ) cm) MV E/A: 0.71 ( - ) LVPWd (2D): 1.2 cm (0.6 cm-1 cm) MV PHT: 0.063 s ( - ) LVOTd 1.9 cm 1.9 cm mm MVA (PHT): 3.5 s ( - ) Patient: STORMY SHEPHERD Study Date: 06/01/2018 Page 1 of 2 09:46 AM LVEF (BP): 54 % (>=55 %) RVDd(2D): 2.3 cm (1.9 cm-3.8 cmmm) Continued Measurements: Chambers Valvular Assessment AV/MV Name Value Name Value LADs: 4.1 cm MV DecTime: 218 m/s LADs Lon.3 cm MV E' Septal: 0.07 m/s LA Area: 23.6 cm2 MV E/E' Septal: 11.90 LA Volume: 75 ml MV E/E' Lateral: 13.30 LA Volume Index: 32.6 ml/m2 RA Area: 17.4 cm2 Additional Vessels Name Value Ao Ascendin.0 cm Inferior Vena Cava: 2.3 cm Findings: Left Ventricle: Normal size left ventricle. Concentric LV hypertrophy. Normal global systolic LV function. EF is 54 %. There is paradoxic septal motion suggestive of bundle branch block, paced cardiac rhythm, or prior cardiac surgery. Normal diastolic LV function. Right Ventricle: Normal size right ventricle. Normal RV function. Left Atrium: The left atirum is borderline dilated. Right Atrium: The right atrium is normal in size. Mitral Valve: The mitral valve is normal in appearance. Mild mitral valve regurgitation is present. No mitral stenosis is present. Aortic Valve: The aortic valve is a bioprosthesis. Normal functioning aortic valve prosthesis. The prosthetic aortic valve is normal. The orifice motion of the prosthetic aortic valve is normal. No prosthesis regurgitation. #23 CE Inspiris Resilia. Tricuspid Valve: The tricuspid valve is normal in appearance and function. Trivial tricuspid valve regurgitation. Pulmonic Valve: The pulmonic valve is normal in appearance and function. Trivial pulmonic valve regurgitation. Aorta: The aorta is normal. Normal size aortic root measuring 3.5 cm. Normal size ascending aorta measuring 3.0 cm. IVC: The IVC is normal sized. Pericardium: Trivial pericardial effusion. No pleural effusion. (No Signature Object) Patient: STORMY SHEPHERD Study Date: 06/01/2018 Page 2 of 2 09:46 AM [id number]
--- NOTE | 2018-06-01 14:40 | ECHO ---
[email or web address] [address] [address] Main: [phone] Fax: Transthoracic Echocardiogram Name: STORMY SHEPHERD MR#: [id number] Study Date: 05/28/2018 Study Time: 02:43 PM Date of : 1950 Age: 67 year(s) Height: 190.5 cm (75 in.) Weight: 99.79 kg (220 lb.) BSA: 2.29 m2 Gender: Male Examination: Echo Indication: Severe , Chest Pain Image Quality: Adequate Contrast: Requested by: Jeff Harley BP: 120 mmHg/67 mmHg Heart Rate: Rhythm: Indication: Severe , Chest Pain Procedure Staff Bundle Tier And Labeler: Kelly Marvin TALHA Reading Physician: Teofilo Angel MD Requesting Provider: Conclusions: Normal size left ventricle. EF is 55 %. No regional wall motion abnormality. Trivial mitral valve regurgitation. The aortic valve is tri-leaflet. Severe aortic valve calcification is present. Severe calcific aortic valve stenosis. Mild to moderate aortic valve regurgitation. No significant change compared to 02/02/2017. Measurements: Chambers Valvular Assessment AV/MV Valvular Assessment TV/PV Normal Normal Normal Name Value Range Name Value Range Name Value Range LVOTd 2.0 cm 2.0 cm mm AV Vmax: 5.39 m/s (1 m/s-1.7 LVEF (MOD4): 55 % (>=55 %) m/s) AV maxP mmHg ( - ) AV meanP mmHg ( - ) ANGÉLICA (VTI): 0.6 cm ( - ) MV E Vmax: 0.50 m/s ( - ) MV A Vmax: 1.02 m/s ( - ) MV E/A: 0.49 ( - ) MV PHT: 0.095 s ( - ) MVA (PHT): 2.3 s ( - ) Continued Measurements: Chambers Valvular Assessment AV/MV Name Value Name Value Patient: STORMY SHEPHERD Study Date: 05/28/2018 Page 1 of 2 02:43 PM LADs Lon.6 cm MV DecTime: 306 m/s LA Area: 21.9 cm2 MV E' Septal: 0.06 m/s MV E/E' Septal: 8.70 MV E/E' Lateral: 9.70 Findings: Left Ventricle: Normal size left ventricle. Normal global systolic LV function. EF is 55 %. No regional wall motion abnormality. Right Ventricle: Normal size right ventricle. Normal RV function. Mitral Valve: The mitral valve is normal in appearance. Trivial mitral valve regurgitation. Aortic Valve: The aortic valve is tri-leaflet. Severe aortic valve calcification is present. Severe calcific aortic valve stenosis. Mild to moderate aortic valve regurgitation. Tricuspid Valve: The tricuspid valve appears normal. Pericardium: No pericardial effusion. Exam Comments: No parasternal imaging could be obtained. Patient is supine post cath. Limited windows. (No Signature Object) Patient: STORMY SHEPHERD Study Date: 05/28/2018 Page 2 of 2 02:43 PM [id number]
--- NOTE | 2018-06-01 16:07 | ASMTCMCOM ---
CM Note CM Note Notes: 06/01/2018 Case Management Note Met wpt and to discuss discharge plans. Both declined inpatient rehab placement. [facility] is preferred SNF rehab for pt and . Case Management d/c poc: [facility] Case Management to follow. Date Signed: 06/01/2018 04:06 PM Electronically Signed By:Billie Andres RN
--- NOTE | 2018-06-01 16:31 | HOSPPROG ---
Hospitalist Progress Note Assessment/Plan: 67 yo M w/ hx of severe , CVA, DM, and HTN presents after episode of chest pain. Went to OR for CABG and AVR but CABG had to be aborted. Today is post op day 4 status post open AVR Plan: Chest pain -patient is status post AVR, attempted CABG but unable to locate LAD. Severe sp AVR - AV area 0.7 and mean gradient of 75 mm Hg. -management per CV surgery -pain management -DVT prophy, asa, heparin -prophy abx -TTE today SAMSON-mild prerenal azotemia from surgery. Resolved. monitor renal function CAD- with occlusion of LAD and inability to bypass, possible stent in future per cardiology. restart his beta taty, asa, statin when able. 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 LINQ monitor in place has not detected AF to date. Continue home medications HTN - restart BB when able, off HTN meds currently and normotensive. Afib- on nothing currently for rate control until clinically improved. restart as pressures rise and as needed. NIDDM - On metformin, was on insulin gtt post operatively but then taken off as not taking good po. Today sugars starting to climb. SSI ordered but has not needed. Diet -ADAT Code - Full Ppx - asa, heparin Dispo - Pending clinical course , per primary to SNF in am. Subjective: pain with hiccups. otherwise well. Objective: Vital Signs Temp Pulse Resp BP Pulse Ox 36.6 C 87 18 128/74 H 97 06/01/18 15:40 06/01/18 15:40 06/01/18 15:40 06/01/18 15:40 06/01/18 15:40 Laboratory Results 06/01/18 04:30 06/01/18 04:30 05/31/18 06/01/18 06/02/18 05:59 05:59 05:59 Intake Total 621.6 840 Output Total 400 280 60 Balance 221.6 560 -60 - Physical Exam Constitutional: no apparent distress, appears nourished, not in pain Eyes: PERRL, anicteric sclera, EOMI Ears, Nose, Mouth, Throat: moist mucous membranes, hearing normal, ears appear normal, no oral mucosal ulcers Cardiovascular: regular rate and rhythym, no murmur, rub, or gallop Respiratory: no respiratory distress, no rales or rhonchi, clear to auscultation Gastrointestinal: normoactive bowel sounds, soft, non-tender abdomen, no palpable masses Genitourinary: no bladder fullness, no bladder tenderness, no renal bruits Skin: no rashes or abrasions, no fluctuance, no induration Musculoskeletal: full muscle strength, no muscle tenderness, normal joint ROM Neurologic: AAOx3, sensation intact bilaterally Psychiatric: interacting appropriately, not anxious, not encephalopathic, thought process linear Lymph, Heme, Immunologic: no cervical LAD, no supraclavicular LAD ICD10 Worksheet Patient Problems: Problems Problem Status Onset Acute blood loss anemia Acute Aortic stenosis, severe Acute CAD in [place] artery Acute Chest pain Acute S/P AVR Acute S/P left atrial appendage ligation Acute Stroke Acute Urinary incontinence Acute
[2018-06-01] MEDS: COENZYME Q10 100 MG PO SCH (20:38)
[2018-06-01] MEDS: ROSUVASTATIN CALCIUM 10 MG TAB PO SCH (22:26)
[2018-06-01] MEDS: HEPARIN 5,000 UNIT/0.5 ML INJ SC SCH (22:26)
[2018-06-02] MEDS: HEPARIN 5,000 UNIT/0.5 ML INJ SC SCH (05:15)
--- NOTE | 2018-06-02 07:18 | SOAPPROG ---
SOAP Progress Note Assessment/Plan: Assessment: POD#4 AVR#23 Inspiris Resilia bioprosthesis w bovine pericardial patch enlargement of LVOT, attempted bypass of LAD w LUJAN, AtriClip exclusion of AVI Sx critical aortic stenosis with severe LVH - s/p AVR with LVOT enlargement. Stable early postop course. Chest tubes and TCPW out. Nl LVEF, nl functioning AV prosthesis and only mild MR by postop echo. Antithrombotic prophylaxis w baby ASA. AF prophylaxis and BP control with BB. Moderate LAD disease - Unsuccessful attempt to bypass. No postop evidence ischemia/RWMA. Surveillance per cards, ? future PCI. Secondary prevention with baby ASA, BB and statin. Acute expected blood loss anemia with thrombocytopenia - Stable. No transfusions needed. VTE prophylaxis with SCDs and SQ hep as allowed by plt count. DM2 - Well controlled by A1c of 6.1%. Postop hyperglycemia managed with insulin gtt. Transitioned to SSI. Min correctional needs. Resumption of Metformin per hospitalist. 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 No apparent post-op exacerbation of deficits. LINQ monitor neg for AF. Clearance for orals and dietary advancement by GAMMA FACILITIES OPERATOR. Skilled for IPR vs SNF. and patient agreeable to SNF. h/o left shoulder biceps tendon tear - Receiving outpt PT. Care with sternal precautions. Plan: Cont metoprolol 50 mg BID. Wean to room air. Dispo - Ok for tx to SNF this afternoon. 06/02/18 07:18 Subjective: Feels good. Improving stamina and appetite. +BM. Ready to leave hospital. He and his decline return to IPR and have selected [facility] rehab. Objective: Vital Signs Temp Pulse Resp BP Pulse Ox 36.7 C 80 18 123/80 H 95 06/02/18 04:00 06/02/18 04:00 06/02/18 04:00 06/02/18 04:00 06/02/18 04:00 Laboratory Results 06/01/18 04:30 06/02/18 05:10 06/01/18 06/02/18 06/03/18 05:59 05:59 05:59 Intake Total 840 620 Output Total 280 510 Balance 560 110 Cardioresp status stable. Borderline suppl O2 req. Balanced I/Os. Approaching baseline weight. Cr nomalized. Physical Exam - Physical Exam General Appearance: alert, no apparent distress Respiratory: lungs clear Cardiac/Chest: regular rate, rhythm, other (Sternotomy CDI) Abdomen: non-tender, soft Skin: warm/dry Extremities: other (no visible edema) ICD10 Worksheet Patient Problems: Problems Problem Status Onset Acute blood loss anemia Acute Aortic stenosis, severe Acute CAD in [place] artery Acute Chest pain Acute S/P AVR Acute S/P left atrial appendage ligation Acute Stroke Acute Urinary incontinence Acute
[2018-06-02] MEDS: INSULIN LISPRO 100 UNIT/ML SC SCH ×2 (07:47→13:50)
[2018-06-02] MEDS ORDERED: SENNOSIDES/DOCUSATE SODIUM TAB PO PRN (09:00)
[2018-06-02] MEDS: PANTOPRAZOLE SODIUM 40 MG TAB PO SCH (09:42)
[2018-06-02] MEDS: METOPROLOL TARTRATE 50 MG TAB PO SCH (09:42)
[2018-06-02] MEDS: ASPIRIN 81 MG CHEWABLE TAB PO SCH (09:42)
[2018-06-02] MEDS: ALLOPURINOL 300 MG TAB PO SCH (09:42)
--- NOTE | 2018-06-02 10:50 | PDIAF ---
- Diagnosis Diagnosis: /CAD, hx CVA/PAF/left shoulder injury s/p tissue AVR & ligation LA append Code Status: Full Code - Medication Management Additional Medication Instructions: FSBG ac and hs. Restart Metformin up to 500 mg BID if accuchecks consistently > 150 mg/dl. Call PCP with any questions/ concerns. Discharge Medications: electronically signed and located in the Home Medication List. PICC Care - Routine: N/A - Orders Services needed: Registered Nurse (cardiorespiratory and wound monitoring), Physical Therapy (2x daily), Speech Language Pathologist (daily) Isolation Type: None Oxygen: prn SpO2 < 90% Diet Recommendation: cardiac -low fat low salt, fluid restriction (use comment for amount) (2 liters daily until back to baseline weight) Diet Texture: Regular Texture Diet, Thin Liquids, Meds Crushed in Puree Weigh Patient: daily Paul: Not applicable Wound Care Instructions: Daily soap and water. No ointments. Ok to leave open to air Additional Instructions: Call [facility] cardiac rehab to enroll in phase 2 classes once released from [facility]. Sternal precautions x 4 weeks. Avoid lifting > 10lbs with an outstretched arm. Avoid push/pull activities. No driving until cleared by surgery. Cleanse wounds once daily with soap and water. Avoid underwater immersion (pool , hot tub, bath) until scabs off. Ok to leave all wounds open to air. Avoid creams or ointments until scabs off. Elevate low legs at rest. Avoid prolonged standing or dangling. Log daily vital signs: weight, resting heart rate over 1 minute, and blood pressure. Call [facility] for overnight weight gain > 2lbs, weekly gain > 5lbs or worsening leg swelling. Call [facility] for resting heart rate > 120 or < 60 OR for systolic blood pressure consistently < 90 or > 140. Please obtain a chest xray and labwork prior to surgical appointment. Use requisition form attached to appointment card. Chest x-rays and labwork don't require an appointment. Go to the Emergency Room entrance at the [facility] location. Sign in at the computer kiosk in the entryway. You will be given a number & may sit in the waiting area until called. You will be registered and directed to Imaging on the 1st floor. This process can take up to an hour. Please allow at least 30 min before your appt to get testing done. Ok to use [id number] medications for iron supplementation, bowel function or pain. Consider Tylenol 500-650 mg with meals and before bed. Max daily dose of Tylenol 3000 mg. Avoid nonsteroidal anti-inflammatories (ie. Ibuprofen, advil, motrin, aleve) due to kidney dysfunction early after surgery. Lifelong antibiotic prophylaxis prior to dental, respiratory tract, or skin/ soft tissue procedures. - Labs/Radiology FBS Date: 06/03/18 (ac and hs) Imaging Orders: CXR prior to surgical appointment - Follow Up Care Current Providers and Referrals: Sherrie Gann MD [Primary Care Provider] - As per Instructions Teofilo Guzman DO [Doctor of Osteopathy] - 06/13/18 10:30 am Jose Luis Milligan MD [Medical Doctor] - (Follow up within 2 weeks release from rehab.)
[2018-06-02 12:26] VITALS: BP 127/73
--- NOTE | 2018-06-02 13:18 | ASMTDCNOTE ---
Case Management Discharge Discharge Order Complete? Answers: Yes Patient to Obtain Answers: Other Notes: [facility] Transportation Arranged Answers: Other Notes: [facility] will Pick (Date 06/02/2018 03:00 PM & Time) Faxed Final Orders Answers: Yes Agency/Facility Transfer Answers: Yes Report Printed & Faxed to Receiving Agency Family Notified Answers: Yes Discharge Comments Notes: Pt to be picked up at 3PM to go to [facility]. Date Signed: 06/02/2018 01:17 PM Electronically Signed By:Stefani Craig
--- NOTE | 2018-06-02 13:18 | ASMTLACE ---
LACE Length of stay for Answers: 4-6 days current admission Acuity / Level of Answers: Yes Care: Did the patient have an inpatient admission? Comorbidities - select Answers: Coronary Artery Disease all that apply Diabetes (uncontrolled or controlled) Other Notes: HTN # of Emergency department Answers: 1-2 visits in the last 6 months Score: 12 Date Signed: 06/02/2018 01:18 PM Electronically Signed By:Stefani Craig
--- NOTE | 2018-06-02 15:38 | PDDCSUM ---
Discharge Summary Discharge Summary: DATE OF ADMISSION: 05/27/18 DATE OF DISCHARGE: 06/02/18 DISPOSITION: Transferred to [facility] PRINCIPAL DISCHARGE DIAGNOSES: 1. Non ST elevation myocardial infarction 2. Single vessel coronary artery disease indisposed to bypass grafting 3. Severe calcific aortic valve stenosis treated with aortic valve replacement with a bioprosthesis 4. Small left ventricular outflow tract enlarged with a bovine pericardial patch extending into the anterior leaflet of the mitral valve 5. Mild postoperative mitral valve regurgitation 6. Acute expected blood loss anemia with thrombocytopenia FOLLOW UP APPOINTMENTS: 1. CV surgery: with Dr Guzman at [facility] on 06/13/18 at 10:30 am. 2. Cardiology: with Dr Milligan at [facility] within 2 weeks of release from [facility]. Appointment to be established during surgical visit. 3. PCP: within 1 week release from SNF. Follow up glycemic control and dysphagia treatment/PATENTED HOGSHEAD ASSEMBLER needs. FOLLOW UP TESTIN. BMP prior to surgical appointment. 2. CXR prior to surgical appointment. ALLERGIES/SENSITIVITIES: Niacin causing flushing DISCHARGE MEDICATIONS: see medical administration record for full details Essentially as on admission (MVI, Loratadine, ASA, Allopurinol, Rosuvastatin) with the following adjustments: 1. Hold Metformin 500 mg BID 2. Hold Diltiazem ER 240 mg daily 3. Hold Diltiazem CD 180 mg daily 4. Hold Losartan-HCTZ 100-25 once daily 5. Hold herbal supplements NEW prescriptions: 1. Metoprolol tartrate 50 mg BID 2. Tramadol 50-100 mg q4h prn incisional discomfort not relieved by Tylenol CONSULTANTS: Cardiology (Henrry), CV surgery (Megan), Pulmonology/critical care (Franko) PROCEDURES/IMAGIN/23 (Stanley): Transthoracic echocardiogram: Nl LV cavity size, moderate concentric LVH, LVEF 55%, heavily calcified trileaflet AV w severe and mild to moderate AI, trivial MR 05/28 (Henrry): Left heart cath with selective coronary angiogram. Access right common femoral artery. Findings: Right dominant circulation, 50-60% mid LAD stenosis, mild luminal irregs of RI and LCX, no angiographic evidence disease in RCA system. 05/29 (Megan): Urgent aortic valve replacement with a 23 mm [place] Inspiris Resilia bovine pericardial bioprosthesis. Bovine pericardial patch enlargement of the anterior leaflet of the mitral valve, aortic valve annulus and aortic root to facilitate accommodation of larger aortic valve. Attempted bypass of the LAD but vessel not located. Sacrifice of left internal mammary artery. Prophylactic AtriClip exclusion of the left atrial appendage. 06/01 (Angel): Transthoracic echocardiogram: Nl BiV size and systolic fx, LVEF 54%, Nl prosthetic AV fx, mild MR, trivial TR. HISTORY OF PRESENT ILLNESS: 67 yo male with severe , scheduled for AVR next month, admitted for further evaluation of left sided chest pressure associated with a mild troponin excursion. Determined to have moderate LAD disease and referred for urgent AVR/ CABG. 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 Sx severe with significant LVH - s/p AVR with LVOT enlargement. Stable early postop course. Preserved LVEF and only mild MR by postop echo. Antithrombotic prophylaxis w baby ASA. AF prophylaxis and BP control with BB. 2. Moderate LAD disease - Vessel course obscured by fat and attempts to bypass abandoned. No postop evidence ischemia/RWMA. Surveillance per cards, ? future PCI. Secondary prevention with baby ASA, BB and statin. 3. Acute expected blood loss anemia with thrombocytopenia - Stable. No transfusions needed. Platelet rebound noted. 4. DM2 - Well controlled by A1c of 6.1%. Postop insulin gtt transitioned to SSI. No correctional needs and Metformin held. Accuchecks to cont AC and HS with resumption of Metformin if FSBG consistently > 150 mg/dl. 5. h/o CVA with mild residual left-sided weakness - Stable. No postop exacerbation of deficits. Tele neg for AF. Clearance for orals and dietary advancement by PATENTED HOGSHEAD ASSEMBLER. Skilled for IPR vs SNF for dysphagia treatment and reconditioning. and patient agreeable to SNF. 6. h/o left shoulder biceps tendon tear - Receiving outpt PT. Care with sternal precautions.
== END 2018-06-02 15:20 | DRG 217 ==
LOC: F2W 05-28 07:33 → OBSVTOIN 05-28 12:32 → F2N 05-29 07:18 → F2W 05-30 17:15
PROVIDERS: ADMIT Thoracic Surgery (Cardiothoracic Vascular Surgery); ATTEND Thoracic Surgery (Cardiothoracic Vascular Surgery)
PROC: 4A023N7 Measurement of Cardiac Sampling and Pressure, Left Heart, Percutaneous Approach (ICD-10-PCS; 2018-05-28)
PROC: 5A1221Z Performance of Cardiac Output, Continuous (ICD-10-PCS; principal; 2018-05-29 08:04)
PROC: 02RF08Z Replacement of Aortic Valve with Zooplastic Tissue, Open Approach (ICD-10-PCS; principal; 2018-05-29 08:04)
PROC: 02L70CK Occlusion of Left Atrial Appendage with Extraluminal Device, Open Approach (ICD-10-PCS; principal; 2018-05-29 08:04)
DX: I21.4 Non-ST elevation (NSTEMI) myocardial infarction (principal); D62 Acute posthemorrhagic anemia; I69.354 Hemiplegia and hemiparesis following cerebral infarction affecting left non-dominant side; I34.0 Nonrheumatic mitral (valve) insufficiency; D69.59 Other secondary thrombocytopenia; I25.10 Atherosclerotic heart disease of native coronary artery without angina pectoris; I35.0 Nonrheumatic aortic (valve) stenosis; E11.9 Type 2 diabetes mellitus without complications; I69.391 Dysphagia following cerebral infarction; I12.9 Hypertensive chronic kidney disease with stage 1 through stage 4 chronic kidney disease, or unspecified chronic kidney disease; N18.9 Chronic kidney disease, unspecified; E78.00 Pure hypercholesterolemia, unspecified; E66.9 Obesity, unspecified; I48.91 Unspecified atrial fibrillation; E21.3 Hyperparathyroidism, unspecified; Z79.84 Long term (current) use of oral hypoglycemic drugs
CPT/HCPCS: 82435-PO; 82565-PO; 82947-PO; 83605-PO; 84132-PO; 84295-PO; 84484-ER; 84520-PO; 85014-PO; 92507-GN; 92523-GN; 92526-GN; 92610-GN; 97116-GP; 97161-GP; 97166-GO; 97530-GP; 97535-GO; C1760; C1763; G8978-GP-CK; G8979-GP-CI; G8987-GO-CL; G8988-GO-CJ; G8996-GN-CK; G8997-GN-CI; G9168-GN-CL; G9169-GN-CL; G9170-GN-CL; J0153; J0282; J0690; J1170; J1265; J1644; J1650; J1815; J1885; J1940; J2001; J2150; J2250; J2260; J2270; J2370; J2440; J2704; J2720; J2930; J3010; J3475; P9041; Q9967

== ENCOUNTER → 2018-06-13 | Outpatient (CLI) | payer OTHER, MEDICARE | LOC: FIMAGING 08:26 | PROVIDERS: ATTEND Thoracic Surgery (Cardiothoracic Vascular Surgery) | DX: Z95.2 Presence of prosthetic heart valve (principal); I51.7 Cardiomegaly; J90 Pleural effusion, not elsewhere classified ==